=== PATIENT | female | born 2000 | race Caucasian/White ===

== ENCOUNTER 2024-10-01 13:56 | Outpatient (OUT) | payer BC, SELFPAY ==
[2024-10-01 14:51] LABS: Basophils Percent Auto 0.4 % (0.2-2.0); Eosinophils Absolute Auto 0.1 10^3/uL (0.0-0.7); Eosinophils Percent Auto 0.6 % (0.9-7.0); Hematocrit 36.9 % (36.0-48.0); Hemoglobin 13.2 g/dL (12.0-16.0); Immature Granulocytes Abs Auto 0.03 10^3/uL (0.00-0.03); Immature Granulocytes Pct Auto 0.3 % (0.0-0.5); Lymphocytes Absolute Auto 1.9 10^3/uL (1.2-3.8); Lymphocytes Percent Auto 19.2 % (20.5-60.0); Mean Corpuscular HGB Conc 35.8 g/dL (29.9-35.2); Mean Corpuscular Hemoglobin 30.6 pg (26.7-34.0); Mean Corpuscular Volume 85.4 fL (81.0-99.0); Mean Platelet Volume 10.3 fL (9.5-13.5); Monocytes Absolute Auto 0.6 10^3/uL (0.3-0.8); Monocytes Percent Auto 5.8 % (1.7-12.0); Neutrophils Absolute Auto 7.4 10^3/uL (1.4-6.5); Neutrophils Percent Auto 73.7 % (43.0-75.0); Platelet Count 221 10^3/uL (150-450); Red Blood Count 4.32 10^6/uL (4.20-5.40); Red Cell Distribution Width 11.9 % (11.0-15.0)
[2024-10-01 14:52] LABS: Estimated Average Glucose 103 mg/dL; Glycohemoglobin A1C 5.2 % (4.5-6.2)
[2024-10-01 14:59] LABS: Amphetamine Screen Urine NEGATIVE (NEGATIVE); Barbiturates Screen Urine NEGATIVE (NEGATIVE); Benzodiazepines Screen Urine NEGATIVE (NEGATIVE); Buprenorphine Screen Urine NEGATIVE (NEGATIVE); Cannabinoid Screen Urine NEGATIVE (NEGATIVE); Cocaine Screen Urine NEGATIVE (NEGATIVE); Methadone Screen Urine NEGATIVE (NEGATIVE); Methamphetamines Screen Urine NEGATIVE (NEGATIVE); Opiate Screen Urine NEGATIVE (NEGATIVE); Oxycodone Screen Urine NEGATIVE (NEGATIVE); Phencyclidine Screen Urine NEGATIVE (NEGATIVE); Tricyclic Antidepressant Urine NEGATIVE (NEGATIVE)
[2024-10-01 15:40] LABS: BOX Test Reference Lab UNITY; BOX Test Sent Out YES
[2024-10-02 04:07] LABS: Rubella Antibodies, IgG <0.90 index (Immune >0.99)
[2024-10-02 05:12] LABS: HCV Ab Non Reactive (Non Reactive); HIV Ab/p24 Ag Screen Non Reactive (Non Reactive)
[2024-10-02 06:12] LABS: HBsAg Screen Negative (Negative)
[2024-10-02 11:08] LABS: Rapid Plasma Reagin, Quant Non Reactive titer (NonRea<1:1)
== END 2024-10-01 13:57 | disposition home or self-care (01) ==
PROVIDERS: PCP Nurse Practitioner Family; Visit Provider Obstetrics & Gynecology
DX: Z34.01 Encounter for supervision of normal first pregnancy, first trimester (principal); Z36.0 Encounter for antenatal screening for chromosomal anomalies; N92.6 Irregular menstruation, unspecified
CPT/HCPCS: 36415; 80307; 83036; 85025; 86592; 86762; 86803; 86850; 86900; 86901; 87086; 87340; 87389

== ENCOUNTER 2024-11-10 20:06 | Outpatient (REF) | payer BC, SELFPAY ==
--- OUTSIDE RECORDS SUMMARY | 2024-11-10 08:40 | XMS_ITS | Encounter Summary ---
Author Organization [facility] Address [address] [place] [address] Care Team Providers Care Pipe Bender Name Role Phone Rebeka Oconnor NP Primary Care Provider Reason for Visit * Reason Comments Routine Visit Encounter Details Date Type Department Care Team (Latest Contact Info) Description 11/10/2024 8:40 AM EDT [facility]ine [facility] [address] [place] [address] Emilia Somers PA [address] [place], [facility] Screening, , for anatomic survey ([facility]); Second trimester ([facility]); 16 weeks gestation of ([facility]); Vaginal discharge; Well woman exam with routine gynecological exam Social History Tobacco Use Types Packs/Day Years Used Date Smoking Tobacco: Never Assessed Estimated Date of Delivery Comme nts Yes 04/25/2025 Based on last me nstrual period of 07/19/2024 Sex and Gender Information Value Date Recorded Sex Assigned at Not on file Legal Sex Female 9:37 AM EDT Gender Identity Not on file Sexual Orientation Not on file documented as of this encounter Last Filed Vital Signs Vital Sign Reading Time Taken Comments Blood Pressure 110/72 11/10/2024 9:26 AM EDT Pulse - - Temperature - - Respiratory Rate - - Oxygen Saturation - - Inhaled Oxygen Concentration - - Weight 68.7 kg (151 lb 8 oz) 11/10/2024 9:26 AM EDT Height - - Body Mass Index - - documented in this encounter Progress Notes * OSORIO Kellogg - 11/10/2024 8:40 AM EDT Reason for Appointment: Patient ID: Christel Mluler is a 24 y.o. female who presents for Routine Visit Patient presents today for Return OB appointment.and annual MEDICATIONS Current Outpatient Medications Medication Instructions MV-Min-Fe Fum-FA-DHA ( 1 PO) 1 tablet, Daily ALLERGIES No Known Allergies PROBLEMS Active Ambulatory Problems Diagnosis Date Noted No Active Ambulatory Problems Resolved Ambulatory Problems Diagnosis Date Noted No Resolved Ambulatory Problems No Additional Past Medical History HISTORY PAST MEDICAL HISTORY SOCIAL HISTORY No past medical history on file. Social History Tobacco Use Smoking status: Not on file Smokeless tobacco: Not on file Substance Use Topics Alcohol use: Not on file Drug use: Not on file FAMILY HISTORY No family history on file. SURGICAL HISTORY No past surgical history on file. REVIEW OF SYSTEMS Review of Systems: Review of Systems Constitutional: Negative. HENT: Negative. Eyes: Negative. Respiratory: Negative. Cardiovascular: Negative. Gastrointestinal: Negative. Genitourinary: Negative. Musculoskeletal: Negative. Skin: Negative. Neurological: Negative. All other systems reviewed and are negative. Hematological: Negative. Endocrine: Negative. Allergic/Immunologic: Negative. OBJECTIVE Objective: Physical Exam Constitutional: Appearance: Normal appearance. She is normal weight. Genitourinary: Right Adnexa: not tender and no mass present. Left Adnexa: not tender and no mass present. No cervical discharge. Breasts: Breasts are soft. Right: Normal. Left: Normal. HENT: Head: Normocephalic. Nose: Nose normal. Mouth/Throat: Mouth: Mucous membranes are moist. Cardiovascular: Rate and Rhythm: Normal rate. Pulses: Normal pulses. Pulmonary: Effort: Pulmonary effort is normal. Breath sounds: Normal breath sounds. Abdominal: General: Bowel sounds are normal. Palpations: Abdomen is soft. Musculoskeletal: General: Normal range of motion. Cervical back: Normal range of motion. Neurological: General: No focal deficit present. Mental Status: She is alert and oriented to person, place, and time. Skin: General: Skin is warm and dry. Psychiatric: Mood and Affect: Mood normal. Behavior: Behavior normal. Thought Content: Thought content normal. Judgment: Judgment normal. Vitals and nursing note reviewed. Exam conducted with a towel folder present. Vitals: There is no height or weight on file to calculate BMI. BP: 110/72 Patient's last menstrual period was 07/19/2024. ASSESSMENT & PLAN ICD-10-CM 1. Screening, , for anatomic survey ([facility]) Z36.89 US OB 14+ weeks anatomy scan US OB 14+ weeks anatomy scan 2. Second trimester ([facility]) Z34.92 POCT urinalysis dipstick manually resulted 3. 16 weeks gestation of ([facility]) Z3A.16 Alpha fetoprotein, maternal Alpha fetoprotein, maternal 4. Vaginal discharge N89.8 SURESWAB(R) ADVANCED VAGINITIS PLUS, TMA CHLAMYDIA TRACHOMATIS (GENITO/STI) Neisseria gonorrhea DNA probe, direct 5. Well woman exam with routine gynecological exam Z01.419 Pap Smear Return OB/Annual Exam: Patient presents today for an annual exam/routine obstetrics appointment. Patient is currently 16w2d . Patient is doing well and states she has no complaints. Pap/cultures was obtained without difficulty and patient was given [facility] order to have obtained. Orders Placed This Encounter Procedures US OB 14+ weeks anatomy scan CHLAMYDIA TRACHOMATIS (GENITO/STI) Neisseria gonorrhea DNA probe, direct Alpha fetoprotein, maternal POCT urinalysis dipstick manually resulted Follow Up: Patient is to return to our office in 4 weeks for routine OB appointment Documented by OSORIO Kellogg on behalf of: OSORIO Kellogg documented in this encounter Plan of Treatment Upcoming Encounters Date Type Department Care Team (Late st Contact Info) Description 12/08/2024 8:00 AM EDT Ancillary Procedure [facility] [address] [place] [address] 12/08/2024 9:00 AM EDT Routine [facility] [address] [place] [address] Alia Segovia, [place] [address] [place] [address] Scheduled Orders Name Type Priority Associated Diagnoses Orde r Schedule SURESWAB(R) ADVANCED VAGINITIS PLUS, TMA Pathology and Cytology Routine Vaginal discharge Ordered: 11/10/2024 CHLAMYDIA TRACHOMATIS (GENITO/STI) Lab Routine Vaginal discharge Ordered: 11/10/2024 Neisseria gonorrhea DNA probe, direct Lab Routine Vaginal discharge Ordered: 11/10/2024 Pap Smear Pathology and Cytology Routine Well woman exam with routine gynecological exam Ordered: 11/10/2024 US OB 14+ weeks anatomy scan Imaging Routine Screening, , for anatomic survey ([facility]) Expected: 11/10/2024, Expires: 02/10/2025 Alpha fetoprotein, maternal Lab Routine 16 weeks gestation of ([facility]) Expected: 11/10/2024 (Approximate), Expires: 01/11/2025 documented as of this encounter Goals Goal Patient Goal Type Associated Problems Recent Progress Patient-Stated? Author Reminders Care Plan OB Reminders No Open Scheduling, Background documented as of this encounter Procedures Procedure Name Priority Date/Time Associated Diagnosis Comments POCT URINALYSIS DIPSTICK Routine 11/10/2024 9:31 AM EDT Second trimester ([facility]) documented in this encounter Results * (ABNORMAL) POCT urinalysis dipstick manually resulted (11/10/2024 9:31 AM EDT) Color, UA Yellow Clarity, UA Clear Glucose, UA Negative Negative - 2000(110) ++++ mg/dL Bilirubin, UA Negative Negative - 4(70) +++ mg/dL Ketones, UA Negative Negative - 160(16) ++++ mg/dL Spec Grav, UA 1.010 1 - 1.03 Blood, UA Positive Negative - 50 Serafin/mcL Comment:Trace pH, UA 7.0 5 - 9 Protein, UA Negative Negative - 2000(20) ++++ mg/dL Urobilinogen, UA 0.2 0.2 - 12 mg/dL Leukocytes, UA Negative Negative - 500+++ Marcelino/mcL Nitrite, UA Negative Negative - Positive Urine 11/10/2024 9:31 AM EDT Emilia AC POINT OF CARE TEST ENTER/EDIT OR DERABLES Final Result documented in this encounter Visit Diagnoses Diagnosis Screening, , for anatomic survey ([facility]) Encounter for anatomic survey Second trimester ([facility]) state, incidental 16 weeks gestation of ([facility]) Vaginal discharge Leukorrhea, not specified as infective Well woman exam with routine gynecological exam Routine gynecological examination documented in this encounter Additional Health Concerns Active Problems Noted Date Diagnosed Date OB Reminders 10/01/2024 documented as of this encounter Care Teams Pipe Bender Relationship Specialty Start Date End Date Rebeka Oconnor NP [address] [place] [address] PCP - General Family Medicine 09/23/24 documented as of this encounter
--- OUTSIDE RECORDS SUMMARY | 2024-11-10 20:09 | XMS_ITS | Clinical Summary ---
Author Organization [facility] Address [address] [place] [address] Care Team Providers Care As400 Administrator Name Role Phone Rebeka Oconnor NP Primary Care Provider Allergies No known active allergies Medications MV-Min-Fe Fum-FA-DHA ( 1 PO) Take 1 tablet by mouth Daily Active Encounters Date Type Department Care Team Description 11/10/2024 8:40 AM EDT Routine [facility] [address] [facility] [place] [place] [address] Emilia Somers PA Screening, , for anatomic survey ([facility]); Second trimester ([facility]); 16 weeks gestation of ([facility]); Vaginal discharge; Well woman exam with routine gynecological exam 11/10/2024 Bamboo flowsheet [facility]ICK [address] [facility] [place] [address] Emilia Somers PA 10/13/2024 3:50 PM EDT Routine [facility] OBGYN [address] [place] [address] Albert Mcclendon DO First trimester ([facility]); 12 weeks gestation of ([facility]) 10/13/2024 Bamboo flowsheet [facility] KEEGYN [address] [place] [address] Albert Mcclendon DO 10/11/2024 [place] [address] Albert Mcclendon, DO 10/08/2024 Travel 10/01/2024 Clinisync Result Encounter NOMS External Department Unsolicited Albert Mcclendon, DO 09/30/2024 [place] [address] Roma Petit LPN 09/23/2024 1:30 PM ED[place] [address] GA: [id number] 09/23/2024 1:00 PM EDT [place] [id number] Missed menses 09/23/2024 [place] [id number] Albert Mcclendon, DO 09/22/2024 Travel 09/20/2024 Travel from Last 3 Months Social History Tobacco Use Types Packs/Day Years Used Date Smoking Tobacco: Never Assessed Estimated Date of Delivery Comme nts Yes 04/25/2025 Based on last me nstrual period of 07/19/2024 Sex and Gender Information Value Date Recorded Sex Assigned at Not on file Legal Sex Female 9:37 AM EDT Gender Identity Not on file Sexual Orientation Not on file Last Filed Vital Signs Vital Sign Reading Time Taken Comments Blood Pressure 110/72 11/10/2024 9:26 AM EDT Pulse - - Temperature - - Respiratory Rate - - Oxygen Saturation - - Inhaled Oxygen Concentration - - Weight 68.7 kg (151 lb 8 oz) 11/10/2024 9:26 AM EDT Height - - Body Mass Index - - Plan of Treatment Upcoming Encounters Date Type Department Care Team (Late st Contact Info) Description 12/08/2024 8:00 AM [place] [address] 12/08/2024 9:00 AM EDT Routine [facility] [address] [place] [address] Alia Segovia, ENDOSCOPY TECHNICIAN [address] [facility] [place] [address] Goals Goal Patient Goal Type Associated Problems Recent Progress Patient-Stated? Author Reminders Care Plan OB Reminders No Open Scheduling, Background Procedures Procedure Name Priority Date/Time Associated Diagnosis Comments POCT URINALYSIS DIPSTICK Routine 11/10/2024 9:31 AM EDT Second trimester ([facility]) CULTURE, URINE, ROUTINE Routine 10/07/2024 12:58 PM EDT Missed menses HBSAG SCREEN Routine 10/01/2024 2:28 PM EDT RAPID PLASMA REAGIN, QUANT Routine 10/01/2024 2:28 PM EDT HIV AB/P24 AG WITH REFLEX Routine 10/01/2024 2:28 PM EDT HCV ANTIBODY RFX TO QUANT PCR Routine 10/01/2024 2:28 PM EDT ALL RUBELLA IGG AB Routine 10/01/2024 2: 28 PM EDT ALL TYPE AND SCREEN Routine 10/01/2024 2 :28 PM EDT BOX TEST Routine 10/01/2024 2:28 PM EDT ALL CBC WITH AUTO DIFF Routine 10/01/2024 2:28 PM EDT MLR HEMOGLOBIN A1C Routine 10/01/2024 2: 28 PM EDT [facility] DRUG SCREEN RAPID (URINE) Routine 10/01/2024 2:12 PM EDT POCT URINALYSIS DIPSTICK Routine 09/23/2024 2:09 PM EDT Missed menses POCT , URINE Routine 09/23/2024 2:08 PM EDT Missed menses US OB TRANSVAGINAL Routine 09/23/2024 1: 30 PM EDT Missed menses from Last 3 Months Results * (ABNORMAL) POCT urinalysis dipstick manually resulted (11/10/2024 9:31 AM EDT) Only the most recent of2 resultswithin the time period is included. Color, UA Yellow Clarity, UA Clear Glucose, [...] CARE TEST ENTER/EDIT OR DERABLES Final Result * Urine culture (10/07/2024 12:58 PM EDT) Urine Urine specimen obtained by clean catch procedure / Unknown Albert Mcclendon DO LAB MICROBIOLOGY - GENERAL ORDER RIZWAN Final Result EXTERNAL LAB * BOX TEST (10/01/2024 2:28 PM EDT) BOX TEST SENT OUT YES [facility] BOX1 [facility] BOX2 10/01/24 [facility] 10/01/2024 2:28 PM EDT 10/01/2024 2:37 PM EDT Narrative [facility] - 10/01/2024 3:40 PM EDT UNITY BOX Albert Danelle DO LAB BLOOD ORDERABLES Final Resul t Performing Organization Address City/[facility]/ZIP Co de Phone Number [facility] * HBSAG SCREEN (10/01/2024 2:28 PM EDT) Pathologist [facility] HBSAG SCREEN Negative Negative [facility] Comment: Performed at: [address] [id number] Medical Legal Investigator: Iban Dc PhD, Phone: [phone] 10/01/2024 2:28 PM EDT 10/01/2024 2:35 PM EDT Narrative [facility] - 10/02/2024 11:08 AM EDT Albert Danelle DO LAB BLOOD ORDERABLES Final Resul t Performing Organization Address [facility] Co de Phone Number [facility] * RAPID PLASMA REAGIN, QUANT (10/01/2024 2:28 PM EDT) [facility] RAPID PLASMA REAGIN, QUANT Non Reactive NonRea<1: 1 titer [facility] Comment: Please Note: This test does not meet current guidelines for screening and diagnosis of syphilis. This test is intended for following treatment response in patients being treated for syphilis infection. To screen for syphilis infection, a reflex cascade that includes both RPR and a treponema-specific assay should be utilized, such as Treponema pallidum (Syphilis) Screening [place] (960415) or Rapid Plasma Reagin (RPR) Test With Reflex to Quantitative RPR and Confirmatory Treponema pallidum Antibodies ([id number]). Performed at: [address] [id number] Medical Legal Investigator: Iban Dc PhD, Phone: [phone] 10/01/2024 2:28 PM EDT 10/01/2024 2:35 PM EDT Narrative [facility] - 10/02/2024 11:08 AM EDT us Albert Danelle DO LAB BLOOD ORDERABLES Final Resul t Performing Organization Address City/[facility] Co de Phone Number [facility] * HIV AB/P24 AG WITH REFLEX (10/01/2024 2:28 PM EDT) Pathologist [facility] HIV AB/P24 AG SCREEN Non Reactive Non Reactive [facility] Comment: HIV-1/HIV-2 antibodies and HIV-1 p24 antigen were NOT detected. There is no laboratory evidence of HIV infection. HIV Negative Performed at: [address] [id number] Medical Legal Investigator: Iban Dc PhD, Phone: [phone] 10/01/2024 2:28 PM EDT 10/01/2024 2:35 PM EDT [facility] - 10/02/2024 5:12 AM EDT us Albert Danelle DO LAB BLOOD ORDERABLES Final Resul t Performing Organization Address [facility] Co de Phone Number [facility] * HCV ANTIBODY RFX TO QUANT PCR (10/01/2024 2:28 PM EDT) Pathologist [facility] HCV AB Non Reactive Non Reactive TB INTERPRETATION: Comment . [facility] Comment: Not infected with HCV unless early or acute infection is suspected (which may be delayed in an immunocompromised individual), or other evidence exists to indicate HCV infection. Performed at: [address] [id number] Medical Legal Investigator: Iban Dc PhD, Phone: [phone] 10/01/2024 2:28 PM EDT 10/01/2024 2:35 PM EDT Narrative [facility] - 10/02/2024 5:12 AM EDT us Albert Danelle DO LAB BLOOD ORDERABLES Final Resul t Performing Organization Address [facility] Co de Phone Number [facility] * MLR HEMOGLOBIN A1C (10/01/2024 2:28 PM EDT) GLYCOHEMOGLOBIN A1C 5.2 4.5 - 6.2 % [facility] Comment: ADA RECOMMENDED LIMIT 4.0 - 6.0 ADA THERAPEUTIC TARGET < 7.0 ACTION SUGGESTED > 7.0 ESTIMATED AVERAGE GLUCOSE 103 mg/dL TB 10/01/2024 2:28 PM EDT 10/01/2024 2:35 PM EDT Narrative [facility] - 10/01/2024 2:54 PM EDT Albert Danelle DO [facility] Final Result [facility] * ALL TYPE AND SCREEN (10/01/2024 2:28 PM EDT) Pathologist [facility] BLOOD TYPE O Negative [facility] ANTIBODY SCREEN NEGATIVE TB 10/01/2024 2:28 PM EDT 10/01/2024 2:35 PM EDT Narrative [facility] - 10/01/2024 4:11 PM EDT [facility] , Andre Phillipezio DO CL[facility] Final Result [facility] * (ABNORMAL) ALL RUBELLA IGG AB (10/01/2024 2:28 PM EDT) Pathologist [facility] RUBELLA ANTIBODIES, IGG <0.90(A) Immune >0.99 index TB Comment: Non-immune <0.90 Equivocal 0.90 - 0.99 Immune >0.99 Performed at: [address] [id number] Medical Legal Investigator: Iban Dc PhD, Phone: [phone] 10/01/2024 2:28 PM EDT 10/01/2024 2:35 PM EDT Narrative [facility] - 10/02/2024 5:12 AM EDT us Albert Danelle DO [facility] Final Result [facility] * (ABNORMAL) ALL CBC WITH AUTO DIFF (10/01/2024 2:28 PM EDT) [facility] TB WBC 10.0 4.0 - 11.0 10 3/uL TBH TBH RBC 4.32 4.20 - 5.40 10 6/uL [facility] TBH HGB 13.2 12.0 - 16.0 g/dL TBH TBH HCT 36.9 36.0 - 48.0 % [facility] TBH MCV 85.4 81.0 - 99.0 fL TBH TBH MCH 30.6 26.7 - 34.0 pg TBH TBH MCHC 35.8(H) 29.9 - 35.2 g/dL TBH TBH RDW 11.9 11.0 - 15.0 % [facility]H TBH PLT 221 150 - 450 10 3/uL TBH TBH MPV 10.3 9.5 - 13.5 fL [facility]H NEUTROPHILS PERCENT AUTO 73.7 43.0 - 75.0 % [facility]H LYMPHOCYTES PERCENT AUTO 19.2(L) 20.5 - 60.0 % [facility] MONOCYTES PERCENT AUTO 5.8 1.7 - 12.0 % [facility]H TBH EO % 0.6(L) 0.9 - 7.0 % TBH BASOPHILS PERCENT AUTO 0.4 0.2 - 2.0 % [facility] IMMATURE GRANULOCYTES PCT AUTO 0.3 0.0 - 0.5 % [facility]H NEUTROPHILS ABSOLUTE AUTO 7.4(H) 1.4 - 6.5 10 3/uL TBH LYMPHOCYTES ABSOLUTE AUTO 1.9 1.2 - 3.8 10 3/uL TBH MONOCYTES ABSOLUTE AUTO 0.6 0.3 - 0.8 10 3/uL TBH TBH EO # 0.1 0.0 - 0.7 10 3/uL TBH BASOPHILS ABSOLUTE AUTO 0.0 0.0 - 0.1 10 3/uL [facility]H IMMATURE GRANULOCYTES ABS AUTO 0.03 0.00 - 0.03 10 3/uL [facility] 10/01/2024 2:28 PM EDT 10/01/2024 2:35 PM EDT Narrative [facility] - 10/01/2024 3:03 PM EDT Albert Danelle DO CLINISYNC Final Result Performing Organization Address City/[facility]/ZIP Co de Phone Number [facility] * TBH DRUG SCREEN RAPID (URINE) (10/01/2024 2:12 PM EDT) CANNABINOID SCREEN URINE NEGATIVE NEGATIVE TBH PHENCYCLIDINE SCREEN URINE NEGATIVE NEGATIVE TBH COCAINE SCREEN URINE NEGATIVE NEGATIVE TBH METHAMPHETAMINES SCREEN URINE NEGATIVE NEGATIVE TBH OPIATE SCREEN URINE NEGATIVE NEGATIVE TBH AMPHETAMINE SCREEN URINE NEGATIVE NEGATIVE TBH BENZODIAZEPINES SCREEN URINE NEGATIVE NEGATIVE TBH TRICYCLIC ANTIDEPRESSANT URINE NEGATIVE NEGATIVE TBH METHADONE SCREEN URINE NEGATIVE NEGATIVE TBH BARBITURATES SCREEN URINE NEGATIVE NEGATIVE TBH OXYCODONE SCREEN URINE NEGATIVE NEGATIVE TBH BUPRENORPHINE SCREEN URINE NEGATIVE NEGATIVE TB[facility] Comment: DRUG CLASS TEST SYSTEM CUT-OFF CONCENTRATIONS ARE FOLLOWS: AMP (Amphetamine): 500 ng/mL BAR (Barbiturates): 200 ng/mL BZO (Benzodiazepines): 150 ng/mL BUP (Buprenorphine): 10 ng/mL KHURRAM (Cocaine): 150 ng/mL mAMP (Methamphetamine): 500 ng/mL MTD (Methadone): 200 ng/mL OPI (Opiates): 100 ng/mL OXY (Oxycodone): 100 ng/mL PCP (Phencyclidine): 25 ng/mL THC (Cannabinoids): 50 ng/mL TCA (Trycyclic Antidepressants): 300 ng/mL 10/01/2024 2:12 PM EDT 10/01/2024 2:36 PM EDT Narrative [facility] - 10/01/2024 2:59 PM EDT Albert Danelle DO CLINISYNC Final Result [facility] * (ABNORMAL) POCT , urine manually resulted (09/23/2024 2:08 PM EDT) Preg Test, Ur Positive Negative Urine 09/23/2024 2:08 PM EDT Albert Danelle DO POINT OF CARE TEST ENTER/EDIT OR DERABLES Final Result * US OB transvaginal (09/23/2024 1:30 PM EDT) Anatomical Region Laterality Modality Body Ultrasound 09/24/2024 10:2 5 AM EDT Narrative 09/24/2024 10:25 AM EDT EXAM: US OB TRANSVAGINAL HISTORY: Dating. COMPARISON: None available. TECHNIQUE: Two-dimensional transvaginal grayscale ultrasound imaging of the pelvis was performed. Color Doppler evaluation of the ovaries was also performed. FINDINGS: The uterus demonstrates a normal homogeneous echotexture. The cervix measures 3.9 cm in length and the cervical os is closed. The right ovary measures 3.3 x 1.6 x 2.6 cm and demonstrates a normal echotexture. There is normal color Doppler flow. There is a presumed corpus luteal cyst visualized. The left ovary measures 3.1 x 1.5 x 1.6 cm and demonstrates a normal echotexture. There is normal color Doppler flow. No fluid is present within the cul-de-sac. There is a single, live intrauterine gestation identified with a heart rate of 170 beats per minute and a crown-rump length measurement of 2.9 cm, correlating to a gestational age of 9 weeks 5 days (+/- 6 days). There is no subchorionic hemorrhage visualized. A yolk sac is visualized. The performing technologist noted a prominent nuchal fold, measuring 0.2 cm. IMPRESSION: 1. Single, live intrauterine gestation 9 weeks, 3 days by LMP. Today's ultrasound measurements correlate with a gestational age of 9 weeks 5 days (+/- 6 days). OLESYA by today's ultrasound is 04/23/2025. 2. Performing technologist noted a prominent nuchal fold, measuring 0.2 cm. However, the nuchal fold is best assessed between 11-13 weeks' gestation. A follow-up ultrasound is recommended between 11-13 weeks gestation for further evaluation. 3. Normal color Doppler evaluation of the bilateral ovaries. Interpreted by: Electronically signed by JUVENAL MUNGUIA II, MD, PHD at 24-Sep-2024 10:23:52 AM [facility] Procedure Note Juvenal Munguia MD - 09/24/2024 EXAM: US OB TRANSVAGINAL HISTORY: Dating. COMPARISON: None available. TECHNIQUE: Two-dimensional transvaginal grayscale ultrasound imaging ofthe pelvis was performed. Color Doppler evaluation of the ovaries was alsoperformed. FINDINGS: The uterus demonstrates a normal homogeneous echotexture. The cervixmeasures 3.9 cm in length and the cervical os is closed. The right ovary measures 3.3 x 1.6 x 2.6 cm and demonstrates a normalechotexture. There is normal color Doppler flow. There is a presumedcorpus luteal cyst visualized. The left ovary measures 3.1 x 1.5 x 1.6 cm and demonstrates a normalechotexture. There is normal color Doppler flow. No fluid is present within the cul-de-sac. There is a single, live intrauterine gestation identified with a fetalheart rate of 170 beats per minute and a crown-rump length measurement of2.9 cm, correlating to a gestational age of 9 weeks 5 days (+/- 6 days).There is no subchorionic hemorrhage visualized. A yolk sac isvisualized. The performing technologist noted a prominent nuchal fold, measuring 0.2cm. IMPRESSION: 1. Single, live intrauterine gestation 9 weeks, 3 days by LMP. Today'sultrasound measurements correlate with a gestational age of 9 weeks 5 days(+/- 6 days). OLESYA by today's ultrasound is 04/23/2025. 2. Performing technologist noted a prominent nuchal fold, measuring 0.2cm. However, the nuchal fold is best assessed between 11-13 weeks'gestation. A follow-up ultrasound is recommended between 11-13 weeksgestation for further evaluation. 3. Normal color Doppler evaluation of the bilateral ovaries. Interpreted by: Electronically signed by JUVENAL MUNGUIA II, MD, PHD [id number] 10:23:52 AM [facility] us Albert Mcclendon DO [facility] OB US PROCEDURES Final Resul t from Last 3 Months Additional Health Concerns Active Problems Noted Date Diagnosed Date OB Reminders 10/01/2024 Insurance [facility] Care Teams As400 Administrator Relationship Specialty Start Date End Date Rebeka Oconnor NP [facility] [facility] [address] [address] [place] [address] PCP - General Family Medicine 09/23/24
--- OUTSIDE RECORDS SUMMARY | 2024-11-10 20:09 | XMS_ITS | Encounter Summary ---
Author Organization [facility] Address [address] [place] [address] Care Team Providers Care Deckhand Name Role Phone Rebeka Oconnor SERVICE TRANSFORMER REPAIR SUPERVISOR Primary Care Provider Encounter Details Date Type Department Care Team (Late st Contact Info) Description 10/11/2024 Abstract [facility] [address] [place] [address] Albert Mcclendon DO [address] [facility] [address] [place], [facility]11 Social History Tobacco Use Types Packs/Day Years Used Date Smoking Tobacco: Never Assessed Estimated Date of Delivery Comme nts Yes 04/25/2025 Based on last me nstrual period of 07/19/2024 Sex and Gender Information Value Date Recorded Sex Assigned at Not on file Legal Sex Female 9:37 AM EDT Gender Identity Not on file Sexual Orientation Not on file documented as of this encounter Plan of Treatment Upcoming Encounters Date Type Department Care Team (Late st Contact Info) Description 12/08/2024 8:00 AM EDT Ancillary Procedure [facility] VICK [address] [place] [address] 12/08/2024 9:00 AM EDT Routine [facility] VICK [address] [place] [address] Alia Segovia, OTTONIEL [address] [place] [address] documented as of this encounter Goals Goal Patient Goal Type Associated Problems Recent Progress Patient-Stated? Author Reminders Care Plan OB Reminders No Open Scheduling, Background documented as of this encounter Visit Diagnoses Not on filedocumented in this encounter Additional Health Concerns Active Problems Noted Date Diagnosed Date OB Reminders 10/01/2024 documented as of this encounter Care Teams Deckhand Relationship Specialty Start Date End Date Rebeka Oconnor NP [address] [place] [address] PCP - General Family Medicine 09/23/24 documented as of this encounter
--- OUTSIDE RECORDS SUMMARY | 2024-11-10 20:09 | XMS_ITS | Encounter Summary ---
Author Organization [facility] Address [address] [place] [address] Care Team Providers Care Insurance Assistant Name Role Phone Rebeka Oconnor NP Primary Care Provider Encounter Details Date Type Department Care Team (Late Contact Info) Description 11/10/2024 Bamboo flowsheet [facility] [address] [place] [address] Emilia Somers PA [address] [facility] [address] [place], [place] [address] Social History Tobacco Use Types Packs/Day Years [...] Description 12/08/2024 8:00 AM EDT Ancillary Procedure [facility] [address] [facility] [place] [address] 12/08/2024 9:00 AM EDT Routine [facility] [address] [place] [address] Alia Segovia, OTTONIEL [address] [facility] [place] [address] documented as of this encounter Goals Goal Patient Goal Type Associated Problems Recent Progress Patient-Stated? Author Reminders Care Plan OB Reminders No Open Scheduling, Background documented as of this encounter Visit Diagnoses Not on filedocumented in this encounter Additional Health Concerns Active Problems Noted Date Diagnosed Date OB Reminders 10/01/2024 documented as of this encounter Care Teams Insurance Assistant Relationship Specialty Start Date End Date Rebeka Oconnor NP [address] [place] [address] PCP - General Family Medicine 09/23/24 documented as of this encounter
--- OUTSIDE RECORDS SUMMARY | 2024-11-10 20:09 | XMS_ITS | Encounter Summary ---
Author Organization [facility] Address [address] [place] [address] Care Team Providers Care Wedding Cake Designer Name Role Phone Rebeka Oconnor BRANNER MACHINE TENDER Primary Care Provider Encounter Details Date Type Department Care Team (Late st Contact Info) Description 09/23/2024 Abstract [facility] [address] [facility] [place] [address] Albert Mcclendon DO [address] [facility] [address] [place], [facility]11 Social History Tobacco Use Types Packs/Day Years [...] Ancillary Procedure [facility] [address] [place] [address] 12/08/2024 9:00 AM EDT Routine [facility] [address] [place] [address] Alia Segovia, OTTONIEL [address] [place] [address] documented as of this encounter Visit Diagnoses Not on filedocumented in this encounter Care Teams Wedding Cake Designer Relationship Specialty Start Date End Date Rebeka Oconnor NP [address] [place] [address] PCP - General Family Medicine 09/23/24 documented as of this encounter
--- OUTSIDE RECORDS SUMMARY | 2024-11-10 20:09 | XMS_ITS ---
Author Organization [facility] Source Produ ction (ClinicalSummary Clone) Address Unknown Care Team Providers Care Clinical Research Spec Name Role Phone Unavailable Primary Care Physician Unavailab le Results * [UNITY] ANEUPLOIDY NIPT Performed by: [employer] Component Value Range Date Fraction 6.6% 10/08/2024 03 :21 am UT Rh(D) NIPT RhD DETECTED 10/08/2024 03:2 1 am UT Sex Chromosome Aneuploidy NOT DETECTED 03:21 am UT Monosomy X LOW RISK <1 in 10,000 2024 03:21 am UTC Trisomy 13 LOW RISK <1 in 10,000 2024 03:21 am UTC Trisomy 18 LOW RISK <1 in 10,000 2024 03:21 am UTC Trisomy 21 LOW RISK <1 in 10,000 2024 03:21 am UT Sex NOT ORDERED 10/08/2024 03:2 1 am UTC Gestation LOZOYA 10/09/19 03:[address] [facility] For detailed report, see PDF See PDF 10/08/2024 03:21 am UTC 10/08/2024 03:[address] [facility] Social History Observation Value Start Date End Date
--- OUTSIDE RECORDS SUMMARY | 2024-11-10 20:09 | XMS_ITS | Encounter Summary ---
Author Organization [facility] Address [address] [place] [address] Care Team Providers Care Transplant Nurse Name Role Phone Rebeka Oconnor NP Primary Care Provider Encounter Details Date Type Department Care Team (Late st Contact Info) Description 09/30/2024 Results Follow-Up [facility] [place] [facility] [address] [place] [address] Roma Petit LPN [address] [place] [id number] Social History Tobacco Use Types Packs/Day Years Used Date Smoking Tobacco: Never Assessed Estimated Date of Delivery Comme nts Yes 04/25/2025 Based on last me nstrual period of 07/19/2024 Sex and Gender Information Value Date Recorded Sex Assigned at Not on file Legal Sex Female 9:37 AM EDT Gender Identity Not on file Sexual Orientation Not on file documented as of this encounter Miscellaneous Notes * Result Encounter Note - Roma Petit LPN - 09/30/2024 4:47 PM EDT Pt notified and is willing to do unity. * Result Encounter Note - Roma Petit LPN - 09/30/2024 4:40 PM EDT Attempted to call pt again but she did not answer. Voicemail was not setup so I was unable to leavevoicemail. * Result Encounter Note - Roma Petit LPN - 09/30/2024 2:22 PM EDT Attempted to call but she did not answer. Voicemail was not set up so I could not leave voicemail. documented in this encounter Plan of Treatment Upcoming Encounters Date Type Department Care Team (Late st Contact Info) Description 12/08/2024 8:00 AM EDT Ancillary Procedure [facility] [address] [facility] [place] [phone] 12/08/2024 9:00 AM EDT Routine [facility] [address] [place] [address] Alia Segovia NP [address] [facility] [place] [phone] documented as of this encounter Visit Diagnoses Not on filedocumented in this encounter Care Teams Transplant Nurse Relationship Specialty Start Date End Date Rebeka Oconnor NP [facility] [facility] [place] [address] PCP - General Family Medicine 09/23/24 documented as of this encounter
--- OUTSIDE RECORDS SUMMARY | 2024-11-10 20:09 | XMS_ITS ---
Author Organization [facility] Source Produ ction (ClinicalSummary Clone) Address Unknown Care Team Providers Care Consulting Property Manager Name Role Phone Unavailable Primary Care Physician Unavailab le Results * [UNITY] CARRIER SCREEN Performed by: [email or web address] Component Value Range Date Sickle Cell Disease/Beta-Thalassemia/Hemo globinopathies carrier screen NEGATIVE 10/09/2024 07:53 am [place] Alpha-Thalassemia carrier screen NEGATIVE 10/09/2024 07:53 am [place] Cystic Fibrosis carrier screen NEGATIVE 10/09/2024 07:53 am [place] Spinal Muscular Atrophy carrier screen NEGATIVE 2 SMN1 copies, SNP not present 10/09/2024 07:53 am [place] For detailed report, see PDF See PDF 10/09/2024 07:53 am [place] 10/09/2024 07:5 3 am [facility] Social History Observation Value Start Date End Date
[2024-11-17 11:08] LABS: Age Gdln ACOG Testing Note (.); IGP, rfx Aptima HPV ASCU Note (.)
== END 2024-11-10 20:07 | disposition home or self-care (01) ==
LOC: LAB 20:06
PROVIDERS: PCP Nurse Practitioner Family; Visit Provider Physician Assistant
DX: Z01.419 Encounter for gynecological examination (general) (routine) without abnormal findings (principal)
CPT/HCPCS: 88175

== ENCOUNTER 2025-02-03 14:59 | Outpatient (OUT) | payer BC, SELFPAY ==
--- OUTSIDE RECORDS SUMMARY | 2025-02-02 08:30 | XMS_ITS | Encounter Summary ---
Author Organization [facility] Address [address] [facility] [address] Care Team Providers Care Wine Bottle Inspector Name Role Phone Rebeka Oconnor NP Primary Care Provider Reason for Visit * ReasonCommentsRoutine Visit Encounter Details DateTypeDepartmentCare Team (Latest Contact Info)Zwmmyblcgvb75/22/2025 8:30 AM EDTRoutine [facility] [address] [place] [address] Emilia Somers PA [address] [place], [facility]11 Size of fetus inconsistent with dates in second trimester ([facility]) (Primary Dx); Diabetes mellitus screening; Third trimester ([facility]); 28 weeks gestation of ([facility]) Social History Tobacco UseTypesPacks/DayYears UsedDateSmoking Tobacco: Never Assessed Estimated Date of HgwhumdkDxlvicesNxu60/12/2026Based on last menstrual period of 07/19/2024Sex and Gender InformationValueDate RecordedSex Assigned at BirthNot on fileLegal WosLwiebn19/11/2023 9:37 AM EDTGender IdentityNot on fileSexual OrientationNot on filedocumented as of this encounter Last Filed Vital Signs Vital SignReadingTime TakenCommentsBlood Hhscojns547/7202/02/2025 8:42 AM EDT Pulse--Temperature--Respiratory Rate--Oxygen Saturation--Inhaled Oxygen Concentration--Pdhhav03.4 kg (175 lb)02/02/2025 8:42 AM EDTHeight--Body Mass Index--documented in this encounter Progress Notes * OSORIO Kellogg - 02/02/2025 8:30 AM EDT Reason for Appointment: Patient ID: Christel Muller is a 24 y.o. female who presents for Routine Visit Patient presents today for Return OB appointment. MEDICATIONS Current Outpatient Medications Medication Instructions MV-Min-Fe [...] No family history on file. SURGICAL HISTORY History reviewed. No pertinent surgical history. REVIEW OF SYSTEMS Review of Systems: Review of Systems OBJECTIVE Objective: OBGyn Exam Vitals: There is no height or weight on file to calculate BMI. BP: Patient's last menstrual period was 07/19/2024. Assessment/Plan ICD-10-CM 1. Diabetes mellitus screening Z13.1 CBC Glucose tolerance, 1 hour CBC Glucose tolerance, 1 hour 2. Third trimester ([facility]) Z34.93 POCT urinalysis dipstick manually resulted 3. 28 weeks gestation of ([facility]) Z3A.28 Return OB: Patient presents today for a routine obstetrics appointment. Patient is currently 28w2d . Patient states she is doing well but has complaints of being tired due to current . Patient has verbalizes frequent movement. labor precautions was discussed/given and patient was instructed to perform kick counts three times a day. Patient was given 1- hr glucose order/CBC to obtain this week at [facility]. PVU. Patient did get a call to schedule the Rhogam injection at [facility] yesterday. Pt states she will be returning the call back today. Orders Placed This Encounter Procedures CBC Glucose tolerance, 1 hour POCT urinalysis dipstick manually resulted Follow Up: Patient is to return to office in 2 week for routine OB appointment. Documented by Danay Cannon MA on behalf of: OSORIO Kellogg documented in this encounter Plan of Treatment DateTypeDepartmentCare Team (Latest Contact Info)Wfepeozvajw92/06/2025 11:00 AM ESTAncillary Procedure [facility] [address] [place] [id number] 02/17/2025 11:40 AM ESTRoutine [facility] [address] [place] [address] Albert Mcclendon DO [address] [place] [address] NameTypePriorityAssociated DiagnosesOrder ScheduleCBCLabRoutine Diabetes mellitus screening Expected: 02/02/2025 (Approximate), Expires: 02/02/2026Glucose tolerance, 1 hour LabRoutine Diabetes mellitus screening Expected: 02/02/2025 (Approximate), Expires: 02/02/2026US OB follow up transabdominal approachImagingRoutine Size of fetus inconsistent with dates in second trimester ([facility]) Expected: 02/02/2025, Expires: 06/05/2025documented as of this encounter Goals GoalPatient Goal TypeAssociated ProblemsRecent ProgressPatient-Stated?Author Reminders Care PlanOB RemindersNoOpen Scheduling, Backgrounddocumented as of this encounter Procedures Procedure NamePriorityDate/TimeAssociated DiagnosisCommentsPOCT URINALYSIS JJDDROSIDjfxmsr02/22/2025 8:50 AM EDT Third trimester ([facility]) PAP TEST, WULSLOCUEluhwdq80/30/2025 12:00 AM EDTdocumented in this encounter Results * (ABNORMAL) POCT urinalysis dipstick manually resulted (02/02/2025 8:50 AM EDT) ComponentValueRef RangeTest MethodAnalysis TimePerformed AtPathologist SignatureColor, UAYellowClarity, UAClearGlucose, UANegativeNegative - 2000(110) ++++ mg/dLBilirubin, UANegativeNegative - 4(70) +++ mg/dLKetones, UA NegativeNegative - 160(16) ++++ mg/dLSpec Grav, UA1.0151 - 1.03Blood, UA PositiveNegative - 50 Serafin/mcLpH, UA6.55 - 9Protein, UANegativeNegative - 2000(20) ++++ mg/dLUrobilinogen, UA1.00.2 - 12 mg/dLLeukocytes, UA3+Negative - 500+++ Marcelino/mcLNitrite, UANegativeNegative - PositiveSpecimen (Source) Anatomical Location / LateralityCollection Method / VolumeCollection Time Received SeujFrstv16/22/2025 8:50 AM EDT Narrative Authorizing ProviderResult TypeResult StatusAmy Yonis PAPOINT OF CARE TEST ENTER/EDIT ORDERABLESFinal Result * PAP TEST, EXTERNAL (11/10/2024 12:00 AM EDT) Narrative Authorizing ProviderResult TypeResult StatusAmy Yonis PALAB CYTOLOGY ORDERABLES Final ResultPerforming OrganizationAddressCity/State/ZIP CodePhone Number EXTERNAL LAB documented in this encounter Visit Diagnoses Diagnosis Size of fetus inconsistent with dates in second trimester ([facility])- Primary Diabetes mellitus screening Screening for diabetes mellitus Third trimester ([facility]) state, incidental 28 weeks gestation of ([facility] documented in this encounter Additional Health Concerns Active ProblemsNoted DateDiagnosed DateOB Xnzfcuseh68/20/2025 documented as of this encounter Care Teams Team MemberRelationshipSpecialtyStart DateEnd Date Rebeka Oconnor NP [address] [place], [place] [id number] PCP - GeneralFamily Medicine09/23/24documented as of this encounter
--- OUTSIDE RECORDS SUMMARY | 2025-02-03 15:06 | XMS_ITS | Encounter Summary ---
Author Organization [facility] Address [address] [place] [address] Care Team Providers Care Resaw Tailer Name Role Phone Rebeka Oconnor NP Primary Care Provider Encounter Details DateTypeDepartmentCare Team (Latest Contact Info)Masgdykejuc14/22/2025Travel Social History Tobacco UseTypesPacks/DayYears UsedDateSmoking Tobacco: Never Assessed Estimated Date of DpofpermXmyubghhZzi54/12/2026Based on last menstrual period of 07/19/2024Sex and Gender InformationValueDate RecordedSex Assigned at BirthNot on fileLegal XrmNuspft71/11/2023 9:37 AM EDTGender IdentityNot on fileSexual OrientationNot on filedocumented as of this encounter Plan of Treatment DateTypeDepartmentCare Team (Latest Contact Info)Ruvwinfvvsz76/06/2025 11:00 AM ESTAncillary Procedure [facility] [address] [place] [address] 02/17/2025 11:40 AM ESTRoutine [facility] [address] [place] [address] Albert Mcclendon DO [address], [facility]11 documented as of this encounter Goals GoalPatient Goal TypeAssociated ProblemsRecent ProgressPatient-Stated?Author Reminders Care PlanOB RemindersNoOpen Scheduling, Backgrounddocumented as of this encounter Visit Diagnoses Not on filedocumented in this encounter Additional Health Concerns Active ProblemsNoted DateDiagnosed DateOB Xxetksnlw57/20/2025 documented as of this encounter Care Teams Team MemberRelationshipSpecialtyStart DateEnd Date Rebeka Oconnor NP [facility] [place] [id number] PCP - GeneralFamily Medicine09/23/24documented as of this encounter
--- OUTSIDE RECORDS SUMMARY | 2025-02-03 15:06 | XMS_ITS | Encounter Summary ---
Author Organization [facility] Address [address] [place] [address] Care Team Providers Care Dairy Farm Worker Name Role Phone Rebeka Oconnor NP Primary Care Provider Encounter Details DateTypeDepartmentCare Team (Latest Contact Info)Necjgsszamd39/22/2025amboo flowsheet [facility] [address] [place] [address] Emilia Somers PA [address] [place], [place] [address] Social History Tobacco UseTypesPacks/DayYears UsedDateSmoking Tobacco: Never Assessed Estimated Date of BmyaktrqSezydzuhPcv01/12/2026Based on last menstrual period of 07/19/2024Sex and Gender InformationValueDate RecordedSex Assigned at BirthNot on fileLegal DgaBlqsba79/11/2023 9:37 AM EDTGender IdentityNot on fileSexual OrientationNot on filedocumented as of this encounter Plan of Treatment DateTypeDepartmentCare Team (Latest Contact Info)Axmyfenbmio36/06/2025 11:00 AM ESTAncillary Procedure [facility] [address] [place] [address] 02/17/2025 11:40 AM ESTRoutine [facility] [address] [place] [address] Albert Mcclendon DO [address] [place] [address] documented as of this encounter Goals GoalPatient Goal TypeAssociated ProblemsRecent ProgressPatient-Stated?Author Reminders Care PlanOB RemindersNoOpen Scheduling, Backgrounddocumented as of this encounter Visit Diagnoses Not on filedocumented in this encounter Additional Health Concerns Active ProblemsNoted DateDiagnosed DateOB Opmivxwcg19/20/2025 documented as of this encounter Care Teams Team MemberRelationshipSpecialtyStart DateEnd Date Rebeka Oconnor NP [address] [place] [address] [place] [address] PCP - GeneralFamily Medicine09/23/24documented as of this encounter
--- OUTSIDE RECORDS SUMMARY | 2025-02-03 15:06 | XMS_ITS | Clinical Summary ---
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 Phone Rebeka Oconnor NP Primary Care Provider Allergies No known active allergies Medications MedicationSigDispense QuantityRefillsLast FilledStart DateEnd DateStatus MV-Min-Fe Fum-FA-DHA ( 1 PO) Take 1 tablet by mouth DailyActive Encounters DateTypeDepartmentCare ItwzAwzmnvwutul64/22/2025 8:30 AM [place] [address] Emilia Somers PA Size of fetus inconsistent with dates in second trimester ([facility]) (Primary Dx); Diabetes mellitus screening; Third trimester ([facility]); 28 weeks gestation of ([facility])02/02/2025amboo [place] [address] Emilia Somers PA 02/02/20250648Rvdlsf80/24/2025 9:00 AM EDTAncillary [place] [address] Screening, , for anatomic survey ([facility])01/03/2025 3:50 PM EDT [place] [address] Albert Mcclendon DO Screening, , for anatomic survey ([facility]) (Primary Dx); Second trimester ([facility]); 24 weeks gestation of ([facility])01/03/2025amboo flowsheet [facility] [place] [address] Albert Mcclendon, 01/03/20257716Hmkhzf53/27/2025 9:00 AM EDTRoutine [facility] Christianson [facility] [address] Alia Segovia, OTTONIEL Second trimester ([facility]); 20 weeks gestation of ([facility])12/08/2024 8:00 AM EDTAncillary Procedure [facility] [place] [address] 12/07/20247898Qnnpbo36/30/2025 8:40 AM EDTRoutine [facility] [place] [address] Emilia Somers PA Screening, , for anatomic survey ([facility]); Second trimester ([facility]); 16 weeks gestation of ([facility]); Vaginal discharge; Well woman exam with routine gynecological exam11/10/2024linisync Result Encounter N[facility] External Department Unsolicited Emilia Somers PA 11/10/2024External Result Encounter NOMS External Department Unsolicited Emilia Somers PA 11/10/2024amboo flowsheet [facility] [address] [place] [address] [place] [address] Emilia Somers PA from Last 3 Months Social History Tobacco UseTypesPacks/DayYears UsedDateSmoking Tobacco: Never Assessed Estimated Date of DdduaaryRkryfcwqWec91/12/2026Based on last menstrual period of 07/19/2024Sex and Gender InformationValueDate RecordedSex Assigned at BirthNot on fileLegal WgkMvcznd10/11/2023 9:37 AM EDTGender IdentityNot on fileSexual OrientationNot on file Last Filed Vital Signs Vital SignReadingTime TakenCommentsBlood Molspckg452/7202/02/2025 8:42 AM EDT Pulse--Temperature--Respiratory Rate--Oxygen Saturation--Inhaled Oxygen Concentration--Peiejt06.4 kg (175 lb)02/02/2025 8:42 AM EDTHeight--Body Mass Index-- Plan of Treatment DateTypeDepartmentCare Team (Latest Contact Info)Kuieflmkwcf37/06/2025 11:00 AM ESTAncillary Procedure [facility] [address] [facility] [place] [address] 02/17/2025 11:40 AM ESTRoutine [facility] V[facility] [address] [place] [address] Albert Mcclendon, [address] [facility] [address] [place], [place] [id number] Goals GoalPatient Goal TypeAssociated ProblemsRecent ProgressPatient-Stated?Author Reminders Care PlanOB RemindersNoOpen Scheduling, Background Procedures Procedure NamePriorityDate/TimeAssociated DiagnosisCommentsPOCT URINALYSIS VXRHATKLOfzgeaa35/22/2025 8:50 AM EDT Third trimester ([facility]) US OB LIMITED 1+ QRHAOTYIunpbuo23/24/2025 9:28 AM EDT Screening, , for anatomic survey ([facility]) POCT URINALYSIS ZOFDFLLMTkgyiof42/22/2025 4:41 PM EDT Second trimester ([facility]) POCT URINALYSIS YULROBAQZijhjgd03/27/2025 9:17 AM EDT Second trimester ([facility]) US OB 14+ WEEKS ANATOMY QFINCebozoo96/27/2025 9:06 AM EDT Screening, , for anatomic survey ([facility]) RECURRENT VAGINITIS (HTRX)Nmpswss0411/10/2024 10:47 AM EDT POCT URINALYSIS MANEXFMWBwaxrmf57/30/2025 9:31 AM EDT Second trimester ([facility]) IGP,APTIMA HPV,AGE DMGWCnmnavm84/30/2025 9:10 AM EDT PAP TEST, VKYDUVVMXotlyyw93/30/2025 12:00 AM EDTfrom Last 3 Months Results * (ABNORMAL) POCT urinalysis dipstick manually resulted (02/02/2025 8:50 AM EDT) Only the most recent of4 resultswithin the time period is included. ComponentValueRef RangeTest MethodAnalysis TimePerformed AtPathologist Signature Color, UAYellowClarity, UAClearGlucose, UANegativeNegative - 2000(110) ++++ mg/dLBilirubin, UANegativeNegative - 4(70) +++ mg/dLKetones, UANegativeNegative - 160(16) ++++ mg/dLSpec Grav, UA1.0151 - 1.03Blood, UAPositiveNegative - 50 Serafin/mcLpH, UA6.55 - 9Protein, UANegativeNegative - 2000(20) ++++ mg/dL Urobilinogen, UA1.00.2 - 12 mg/dLLeukocytes, UA3+Negative - 500+++ Marcelino/mcL Nitrite, UANegativeNegative - PositiveSpecimen (Source)Anatomical Location / LateralityCollection Method / VolumeCollection TimeReceived ExydYeize42/22/2025 8:50 AM EDT Narrative Authorizing ProviderResult TypeResult StatusSouthcoast Behavioral Health HospitalOINT OF CARE TEST ENTER/EDIT ORDERABLESFinal Result * US OB limited 1+ fetuses (01/05/2025 9:28 AM EDT)Anatomical RegionLaterality ModalityBodyUltrasoundSpecimen (Source)Anatomical Location / Laterality Collection Method / VolumeCollection TimeReceived Time01/06/2025 12:39 PM EDT Impressions 01/06/2025 12:59 PM EDT Normal outflow tracts, viable intrauterine TRANSCRIBED BY: ? ELECTRONICALLY SIGNED BY: Blas Salomon MD Narrative 01/06/2025 12:59 PM EDT FINDINGS: Single viable interpregnancy, adequate and cardiac activity (158 bpm). Breech presentation, closed cervix. RVOT and LVOT are adequately seen, age appropriate at this time. Gestational age of 24 weeks, 2 days with estimated delivered date of April 25, 2025. Procedure Note Blas Salomon MD - 01/06/2025 FINDINGS: Single viable interpregnancy, adequate and cardiac activity (158bpm). Breech presentation, closed cervix. RVOT and LVOT are adequately seen, age appropriate at this time. Gestational age of 24 weeks, 2 days with estimated delivered date ofApril 25, 2025. IMPRESSION: Normal outflow tracts, viable intrauterine TRANSCRIBED BY: ELECTRONICALLY SIGNED BY: Blas Salomon MD Authorizing ProviderResult TypeResult StatusAlia Segovia NPIMG OB US PROCEDURESFinal Result * US OB 14+ weeks anatomy scan (12/08/2024 9:06 AM EDT)Anatomical Region LateralityModalityBodyUltrasoundSpecimen (Source)Anatomical Location / LateralityCollection Method / VolumeCollection TimeReceived Time12/09/2024 11:53 AM EDT Addenda Addendum by Blas Salomon MD on 12/14/2024 12:59 PM EDT ADDENDUM #1 Anatomic evaluation is incomplete, recommend follow-up imaging to evaluate LVOT and RVOT. TRANSCRIBED BY: ? ELECTRONICALLY SIGNED BY: Blas Salomon MD Impressions 12/09/2024 1:28 PM EDT Single, live intrauterine , current sonographic age of 20 weeks and 1 days, with an estimated date of delivery of April 26, 2025. * ??Estimated Weight (g) by Percentile is based upon an accurate estimated age based onlast menstrual period. ?? TRANSCRIBED BY: ? ELECTRONICALLY SIGNED BY: Blas Salomon MD Narrative 12/09/2024 1:28 PM EDT FINDINGS: A single, live intrauterine is present with normal cardiac rate of 144 ??beats per minute. Normal activity and amniotic fluid volume. Amniotic fluid index is ?? cm. ??Morphologyis grossly normal. ??The ??inferior aspect of the posterior placenta 3.2 cm from the closed internal cervical os, 3.6 x 3.7 cm length, not associated with the cervical os. ??The current sonographic age is 20 ?? weeks and 1 ??days, based on the following measurements: BPD ?4.7cm (20 ??weeks, 1 days) Head Circumference ?17.3cm ( 19weeks, 6 days) Abdominal Circumference ? 15.6cm ( 20weeks, 5 days) Femur Length ? 3.4cm (20 weeks, 3 days) Presentation ?Breech ? Placenta ?Posterior Weight (g) by Percentile ?? 60.5 % * These measurements result in an estimated date of delivery of April 26, 2025. ?The current estimated weight is ??361 ??grams ( ??pound, 13 ??ounces). ?? Procedure Note Blas Salomon MD - 12/09/2024 FINDINGS: A single, live intrauterine is present with normal cardiacrate of 144 beats per minute. Normal activity and amniotic fluidvolume. Amniotic fluid index is cm. Morphology is grossly normal. Theinferior aspect of the posterior placenta 3.2 cm from the closed internalcervical os, 3.6 x 3.7 cm length, not associated with the cervical os.The current sonographic age is 20 weeks and 1 days, based on thefollowing measurements: BPD 4.7cm (20 weeks, 1 days) Head Circumference 17.3cm ( 19weeks, 6 days) Abdominal Circumference 15.6cm ( 20weeks, 5 days) Femur Length 3.4cm (20 weeks, 3 days) Presentation Breech Placenta Posterior Weight (g) by Percentile 60.5 % * These measurements result in an estimated date of delivery of April. The current estimated weight is 361 grams ( pound, 13ounces). IMPRESSION: Single, live intrauterine , current sonographic age of 20 weeksand 1 days, with an estimated date of delivery of April 26, 2025. * Estimated Weight (g) by Percentile is based upon an accurateestimated age based on last menstrual period. TRANSCRIBED BY: ELECTRONICALLY SIGNED BY: Blas Salomon MD Authorizing ProviderResult TypeResult StatusAmy Yonis ALVAREZ OB US PROCEDURES Edited Result - Final * RECURRENT VAGINITIS (HTRX) (11/10/2024 10:47 AM EDT)ComponentValueRef Range Test MethodAnalysis TimePerformed AtPathologist SignatureATOPOBIUM VAGINAE0 19.961 - 24.689 ppm11/12/2024 11:14 AM EDTHealthTrackRx at LabPortATOPOBIUM VAGINAENot Ejasghut09.961 - 24.689 ppm11/12/2024 11:14 AM EDTHealthTrackRx at LabPortBVAB 2,3 (BACTERIAL VAGINOSIS ASSOCIATED BACTERIA 2, 3); MOBILUNCUS SPP 019.961 - 24.689 ppm11/12/2024 11:14 AM EDTHealthTrackRx at LabPortBVAB 2,3 (BACTERIAL VAGINOSIS ASSOCIATED BACTERIA 2, 3); MOBILUNCUS SPPNot Detected 19.961 - 24.689 ppm11/12/2024 11:14 AM EDTHealthTrackRx at LabPortCANDIDA ALBICANS, PARAPSILOSIS, UCOEOTWMWJ532.000 - 30.347 ppm11/12/2024 11:14 AM EDT [facility] at LabPortCANDIDA ALBICANS, PARAPSILOSIS, TROPICALISNot Detected 23.000 - 30.347 ppm11/12/2024 11:14 AM EDTHealthTrackRx at LabPortCANDIDA UTWHHBMI229.000 - 31.618 ppm11/12/2024 11:14 AM EDTHealthTrackRx at LabPort DERECK GLABRATANot Sntlqnrv50.000 - 31.618 ppm11/12/2024 11:14 AM EDT [facility] IMTOUQ427.000 - 30.873 ppm11/12/2024 11:14 AM EDTHealthTrackRx at [facility] HospitalCANDIDA KRUSEINot Dodwgoad78.000 - 30.873 ppm 11/12/2024 11:14 AM EDTHealthTrackRx at [facility] HospitalCHLAMYDIA BRIRTSGIKGY045.000 - 31.586 ppm11/12/2024 11:14 AM EDTHealthTrackRx at [facility] HospitalCHLAMYDIA TRACHOMATIS Not Axhetzjw86.000 - 31.586 ppm11/12/2024 11:14 AM EDTHealthTrackRx at [facility] GARDNERELLA LAXEWFUUS143.961 - 24.689 ppm11/12/2024 11:14 AM EDTHealthTrackRx at [facility] HospitalGARDNERELLA VAGINALISNot Cziolqam79.961 - 24.689 ppm11/12/2024 11:14 AM EDTHealthTrackRx at [facility] HospitalMEGASPHAERA (TYPES 1, 2)019.961 - 24.689 ppm 11/12/2024 11:14 AM EDTHealthTrackRx at [facility] HospitalMEGASPHAERA (TYPES 1, 2)Not Juaizipq91.961 - 24.689 ppm11/12/2024 11:14 AM EDTHealthTrackRx at [facility] NEISSERIA WXYDJAVPEDS006.000 - 32.587 ppm11/12/2024 11:14 AM EDTHealthTrackRx at [facility] HospitalNEISSERIA GONORRHOEAENot Bcmbkole94.000 - 32.587 ppm11/12/2024 11:14 AM EDTHealthTrackRx at [facility] HospitalTRICHOMONAS JJBMKGNUS172.000 - 31.995 ppm 11/12/2024 11:14 AM EDTHealthTrackRx at [facility] HospitalTRICHOMONAS VAGINALISNot Pvryhpkt07.000 - 31.995 ppm11/12/2024 11:14 AM EDTHealthTrackRx at [facility] MYCOPLASMA RAYYYPPQFM984.961 - 24.689 ppm11/12/2024 11:14 AM EDTHealthTrackRx at [facility] HospitalMYCOPLASMA GENITALIUMNot Fysnhdeo73.961 - 24.689 [facility]11/12/2024 11:14 AM EDTHealthTrackRx at [facility] Community HospitalSpecimen (Source)Anatomical Location / LateralityCollection Method / VolumeCollection TimeReceived TimeTissue 11/10/2024 10:47 AM EDT11/12/2024 1:11 AM EDT Narrative Authorizing ProviderResult TypeResult StatusAmy Protivin [facility] BLOOD ORDERABLES Final ResultPerforming OrganizationAddressCity/State/ZIP CodePhone Number [facility] [address] [address] * IGP,APTIMA HPV,AGE GDLN (11/10/2024 9:10 AM EDT)ComponentValueRef RangeTest MethodAnalysis TimePerformed AtPathologist SignatureAGE GDLN ACOG TESTINGNote. TBHComment: ?? TESTS ? RESULT ??FLAG ??UNITS ?REF RANGE ??LAB ?? Clinician Provided Cytology Information ?? Source.............Vagina ?? Other.............. ?? No. of containers..01 ThinPrep Vial Age Algo ACOG Gisela... ??21-29 ? 01 ?FLAG LEGEND: ?L-Low Normal,H-High Normal,LL-Alert Low,HH-Alert High <-Panic Low,>-Panic High,A-Abnormal,AA-Critical Abnormal Performed at: 01 =G ?[facility] [place] ?? [address] [place] ??[phone] ?? Florence Strickland MD, IGP, RFX APTIMA HPV ASCUNote.TBHComment: ?? TESTS ? RESULT ??FLAG ??UNITS ?REF RANGE ??LAB DIAGNOSIS: ?02 ?? NEGATIVE FOR INTRAEPITHELIAL LESION OR MALIGNANCY. ?? THIS SPECIMEN WAS RESCREENED PART OF OUR CAREER DEVELOPMENT MANAGER PROGRAM. Specimen adequacy: ?02 ?? Satisfactory for evaluation. ??No endocervical component is identified. ?? An endocervical component is not commonly seen in the patient. Performed by: ? 02 ?? Elaine Deleon Quilting Supervisor ([facility]) QC reviewed by: ? 02 ?? Ena Veloz, Quilting Supervisor (ASCP) . ? 02 Note: ? Note ?02 ?? The Pap smear is a screening test designed to aid in the ?? detection of premalignant and malignant conditions of the ?? uterine cervix. ??It is not a diagnostic procedure and ?? should not be used as the sole means of detecting cervical ?? cancer. ??Both false-positive and false-negative reports do ?? occur. Test Methodology: ? Note ?02 ?? This liquid based ThinPrep(R) pap test was screened with ?? the use of an image guided system. . ? 02 ?? The HPV DNA reflex criteria were not met with this specimen ?? result therefore, no HPV testing was performed. ?FLAG LEGEND: ?L-Low Normal,H-High Normal,LL-Alert Low,HH-Alert High <-Panic Low,>-Panic High,A-Abnormal,AA-Critical Abnormal Performed at: 02 WB ?[facility] [place] ?? [address], [place] ??[phone] ?? Florence Strickland MD, Performed at: ??=G - [facility] [place] [address], [place] ??[phone] Concrete Building Assembler: Florence Strickland MD, Phone: ??[phone] Performed at: ??WB - [facility] [place] [address], [place] ??[phone] Concrete Building Assembler: Florence Strickland MD, Phone: ??[phone] Specimen (Source)Anatomical Location / LateralityCollection Method / Volume Collection TimeReceived Time11/10/2024 9:10 AM EDT11/11/2024 5:41 AM EDT Narrative [facility] - 11/17/2024 11:08 AM EDT SPATULA-ALONE VAGINA Authorizing ProviderResult TypeResult StatusAmy Yonis [facility] BLOOD ORDERABLES Final ResultPerforming OrganizationAddressCity/State/ZIP CodePhone Number [facility] * PAP TEST, EXTERNAL (11/10/2024 12:00 AM EDT) Narrative Authorizing ProviderResult TypeResult StatusAmy Protivin [facility] CYTOLOGY ORDERABLES Final ResultPerforming OrganizationAddressCity/State/ZIP CodePhone Number EXTERNAL LAB from Last 3 Months Additional Health Concerns Active ProblemsNoted DateDiagnosed DateOB Cbcuoknfb54/20/2025 Insurance MemberSubscriberPlan / Payer (Effective 2024-Present)Name:Christel Muller Relation to Subscriber:SelfName:Christel Muller Payer ID:Not on file Type:Not on file Address: [facility] [id number] [place] [phone] Care Teams Team MemberRelationshipSpecialtyStart DateEnd Date Rebeka Oconnor NP [facility] [place] [address] [facility]/23/24
[2025-02-03 16:22] LABS: Hematocrit 34.7 % (36.0-48.0); Hemoglobin 11.9 g/dL (12.0-16.0); Immature Granulocytes Abs Auto 0.07 10^3/uL (0.00-0.03); Immature Granulocytes Pct Auto 0.6 % (0.0-0.5); Lymphocytes Absolute Auto 1.5 10^3/uL (1.2-3.8); Mean Corpuscular HGB Conc 34.3 g/dL (29.9-35.2); Mean Corpuscular Hemoglobin 30.4 pg (26.7-34.0); Mean Corpuscular Volume 88.7 fL (81.0-99.0); Platelet Count 190 10^3/uL (150-450); Red Blood Count 3.91 10^6/uL (4.20-5.40); White Blood Count 10.8 10^3/uL (4.0-11.0)
[2025-02-03 16:34] LABS: Glucose 1 Hour 117 mg/dL (<130)
== END 2025-02-03 15:00 | disposition home or self-care (01) ==
LOC: LAB 15:02
PROVIDERS: PCP Nurse Practitioner Family; Visit Provider Physician Assistant
DX: Z13.1 Encounter for screening for diabetes mellitus (principal)
CPT/HCPCS: 36415; 82950; 85025

== ENCOUNTER 2025-02-04 09:00 | Outpatient (RCR) | payer BC, SELFPAY ==
[2025-02-04] MEDS: RHO(D) IMMUNE GLOBULIN 1,500 UNIT SYRINGE 1500 UNIT IM (09:08)
== END 2025-02-14 12:00 | disposition home or self-care (01) ==
LOC: LAB 09:00
PROVIDERS: PCP Nurse Practitioner Family; Visit Provider Obstetrics & Gynecology
DX: O26.893 Other specified pregnancy related conditions, third trimester (principal); Z67.91 Unspecified blood type, Rh negative; Z13.1 Encounter for screening for diabetes mellitus; Z51.81 Encounter for therapeutic drug level monitoring
CPT/HCPCS: 36415; 82950; 85025; 86850; 86900; 86901; J2791

== ENCOUNTER 2025-03-28 20:16 | Outpatient (REF) | payer BC, SELFPAY ==
--- OUTSIDE RECORDS SUMMARY | 2025-03-16 13:30 | XMS_ITS | Encounter Summary ---
Author Organization [facility] Address [address] [facility] [place] [address] Care Team Providers Care Manager Hospital Name Role Phone Rebeka Oconnor NP Primary Care Provider Reason for Visit * ReasonCommentsRoutine Visit Encounter Details DateTypeDepartmentCare Team (Latest Contact Info)Cqzelzxwxox68/03/2025 1:30 PM ESTRoutine [facility] [address] [address] [address] [place] [address] Albert Mcclendon DO [address] [facility] [address] [place], [facility] Third trimester ([facility]); 34 weeks gestation of ([facility]) Social History Tobacco UseTypesPacks/DayYears UsedDateSmoking Tobacco: Never Assessed Estimated Date of VwqplpaiBhdwkowkBye22/12/2026ased on last menstrual period of 07/19/2024Sex and Gender InformationValueDate RecordedSex Assigned at BirthNot on fileLegal UstGouywc77/11/2023 9:37 AM EDTGender IdentityNot on fileSexual OrientationNot on filedocumented as of this encounter Last Filed Vital Signs Vital SignReadingTime TakenCommentsBlood Urjyuzgx474/7003/16/2025 2:10 PM EST Pulse--Temperature--Respiratory Rate--Oxygen Saturation--Inhaled Oxygen Concentration--Abazpg84.6 kg (182 lb)03/16/2025 2:10 PM ESTHeight--Body Mass Index--documented in this encounter Progress Notes * Mary Ellen Silver LPN - 03/16/2025 1:30 PM EST Reason for Appointment: Patient ID: Christel Muller is a 25 y.o. female who presents for Routine Visit [...] Exam Constitutional: Appearance: Normal appearance. She is well-developed. Cardiovascular: Rate and Rhythm: Normal rate and regular rhythm. Pulmonary: Effort: Pulmonary effort is normal. Breath sounds: Normal breath sounds. Abdominal: General: Bowel sounds are normal. There is no distension. Palpations: Abdomen is soft. Tenderness: There is no abdominal tenderness. There is no guarding or rebound. Musculoskeletal: General: No swelling. Normal range of motion. Right lower leg: No edema. Left lower leg: No edema. Neurological: Mental Status: She is alert and oriented to person, place, and time. Skin: General: Skin is warm and dry. Psychiatric: Mood and Affect: Mood normal. Behavior: Behavior normal. Vitals and nursing note reviewed. Exam conducted with a hazardous materials handler present. Vitals: There is no height or weight on file to calculate BMI. BP: Patient's last menstrual period was 07/19/2024. Assessment/Plan ICD-10-CM 1. Third trimester ([facility]) Z34.93 POCT urinalysis dipstick manually resulted 2. 34 weeks gestation of ([facility]) Z3A.34 Assessment/Plan Return OB: Patient presents today for a routine obstetrics appointment. Patient is currently 34w2d . Patient states she is doing well but has complaints of being tired due to current . Patient has verbalizes frequent movement. labor precautions was discussed/given and patient was instructed to perform kick counts three times a day. Pt has uri- pt advised to get sudafed. Orders Placed This Encounter Procedures POCT urinalysis dipstick manually resulted Follow Up: Patient is to return to office in 2 week for routine OB appointment. Documented by Mary Ellen Silver LPN on behalf of: Albert Mcclendon DO documented in this encounter Plan of Treatment DateTypeDepartmentCare Team (Latest Contact Info)Mubkpkuctrz20/22/2025 1:00 PM ESTRoutine [facility] [address] [place] [id number] Albert Mcclendon DO [address] [facility] [place] [address] documented as of this encounter Goals GoalPatient Goal TypeAssociated ProblemsRecent ProgressPatient-Stated?Author Reminders Care PlanOB RemindersNoOpen Scheduling, Backgrounddocumented as of this encounter Procedures Procedure NamePriorityDate/TimeAssociated DiagnosisCommentsPOCT URINALYSIS MNPNISVDBotezgp79/03/2025 2:02 PM EST Third trimester ([facility] documented in this encounter Results * (ABNORMAL) POCT urinalysis dipstick manually resulted (03/16/2025 2:02 PM EST) ComponentValueRef RangeTest MethodAnalysis TimePerformed AtPathologist SignatureColor, UAYellowClarity, UACloudyGlucose, UANegativeNegative - 2000(110) ++++ mg/dLBilirubin, UANegativeNegative - 4(70) +++ mg/dLKetones, UA PositiveNegative - 160(16) ++++ mg/dLSpec Grav, UA1.0201 - 1.03Blood, UA PositiveNegative - 50 Serafin/mcLpH, UA7.05 - 9Protein, UA1+Negative - 1999(20) ++++ mg/dLUrobilinogen, UA1.00.2 - 12 mg/dLLeukocytes, UA1+Negative - 500+++ Marcelino/mcLNitrite, UANegativeNegative - PositiveSpecimen (Source)Anatomical Location / LateralityCollection Method / VolumeCollection TimeReceived Time Urine03/16/2025 2:02 PM EST Narrative Authorizing ProviderResult TypeResult StatusCorey Danelle DOPOINT OF CARE TEST ENTER/EDIT ORDERABLESFinal Result documented in this encounter Visit Diagnoses Diagnosis Third trimester ([facility]) state, incidental 34 weeks gestation of ([facility]) documented in this encounter Additional Health Concerns Active ProblemsNoted DateDiagnosed DateOB Gnoilxonh36/20/2025 documented as of this encounter Care Teams Team MemberRelationshipSpecialtyStart DateEnd Date Rebeka Oconnor NP [facility] [place] [address] PCP - GeneralFamily Medicine09/23/24documented as of this encounter
--- OUTSIDE RECORDS SUMMARY | 2025-03-23 13:30 | XMS_ITS | Encounter Summary ---
Author Organization [facility] Address [address] [place] [place] [address] Care Team Providers Care Wholesale Agronomist Name Role Phone Rebeka Oconnor NP Primary Care Provider Reason for Visit * ReasonCommentsRoutine Visit Encounter Details DateTypeDepartmentCare Team (Latest Contact Info)Zkrnqxcndxj16/10/2025 1:30 PM ESTRoutine [facility] [address] [place] [address] Emilia Somers PA [address] [place], [facility]11 35 weeks gestation of ([facility]); Third trimester ([facility]) Social History Tobacco UseTypesPacks/DayYears UsedDateSmoking Tobacco: Never Assessed Estimated Date of ZpjynnizIrwapohmOhv05/12/2026ased on last menstrual period of 07/19/2024Sex and Gender InformationValueDate RecordedSex Assigned at BirthNot on fileLegal SbhXgfkvd36/11/2023 9:37 AM EDTGender IdentityNot on fileSexual OrientationNot on filedocumented as of this encounter Last Filed Vital Signs Vital SignReadingTime TakenCommentsBlood Lyvbmzag924/7003/23/2025 1:45 PM EST Pulse--Temperature--Respiratory Rate--Oxygen Saturation--Inhaled Oxygen Concentration--Ctaiwo29.9 kg (187 lb 1.9 oz)03/23/2025 1:45 PM ESTHeight--Body Mass Index--documented in this encounter Progress Notes * OSORIO Kellogg - 03/23/2025 1:30 PM EST Reason for Appointment: Patient [...] History HISTORY PAST MEDICAL HISTORY SOCIAL HISTORY History reviewed. No pertinent past medical history. Social History Tobacco Use Smoking status: Not [...] nursing note reviewed. Exam conducted with a real estate paralegal present. Vitals: There is no height or weight on file to calculate BMI. BP: 110/70 Patient's last menstrual period was 07/19/2024. Assessment/Plan ICD-10-CM 1. 35 weeks gestation of ([facility]) Z3A.35 POCT urinalysis dipstick manually resulted 2. Third trimester ([facility]) Z34.93 POCT urinalysis dipstick manually resulted Assessment/Plan Return OB: Patient presents today for a routine obstetrics appointment. Patient is currently 35w2d . Patient states she is doing well but has complaints of being tired due to current . Patient has verbalizes frequent movement. labor precautions was discussed/given and patient was instructed to perform kick counts three times a day. Orders Placed This Encounter Procedures POCT urinalysis dipstick manually resulted Follow Up: Patient is to return to office in 2 week for routine OB appointment. Documented by Elvi Gray LPN on behalf of: OSORIO Kellogg documented in this encounter Plan of Treatment DateTypeDepartmentCare Team (Latest Contact Info)Ofqkdqcnsch72/22/2025 1:00 PM ESTRoutine [facility] [address] [place] [phone] Albert Mcclendon DO [address] [place] [address] documented as of this encounter Goals GoalPatient Goal TypeAssociated ProblemsRecent ProgressPatient-Stated?Author Reminders Care PlanOB RemindersNoOpen Scheduling, Backgrounddocumented as of this encounter Procedures Procedure NamePriorityDate/TimeAssociated DiagnosisCommentsPOCT URINALYSIS JGHGMMUPVffchdp86/10/2025 1:45 PM EST 35 weeks gestation of ([facility]) Third trimester ([facility]) documented in this encounter Results * (ABNORMAL) POCT urinalysis dipstick manually resulted (03/23/2025 1:45 PM EST) ComponentValueRef RangeTest MethodAnalysis TimePerformed AtPathologist SignatureColor, UAYellowClarity, UAClearGlucose, UANegativeNegative - 2000(110) ++++ mg/dLBilirubin, UANegativeNegative - 4(70) +++ mg/dLKetones, UA NegativeNegative - 160(16) ++++ mg/dLSpec Grav, UA1.0101 - 1.03Blood, UA NegativeNegative - 50 Serafin/mcLpH, UA8.05 - 9Protein, UANegativeNegative - 2000(20) ++++ mg/dLUrobilinogen, UA1.00.2 - 12 mg/dLLeukocytes, UA3+Negative - 500+++ Marcelino/mcLNitrite, UANegativeNegative - PositiveSpecimen (Source) Anatomical Location / LateralityCollection Method / VolumeCollection Time Received OwxcCgdhg74/10/2025 1:45 PM EST Narrative Authorizing ProviderResult TypeResult StatusRetreat Doctors' Hospital TEST ENTER/EDIT ORDERABLESFinal Result documented in this encounter Visit Diagnoses Diagnosis 35 weeks gestation of ([facility]) Third trimester ([facility]) state, incidental documented in this encounter Additional Health Concerns Active ProblemsNoted DateDiagnosed DateOB Jtireopwt26/20/2025 documented as of this encounter Care Teams Team MemberRelationshipSpecialtyStart DateEnd Date Rebeka Oconnor NP [address] [place] [address] PCP - GeneralFamily Medicine09/23/24documented as of this encounter
--- OUTSIDE RECORDS SUMMARY | 2025-03-28 10:50 | XMS_ITS | Encounter Summary ---
Author Organization [facility] Address [address] [place] [place] [address] Care Team Providers Care Hose Coupling Joiner Name Role Phone Rebeka Oconnor NP Primary Care Provider Reason for Visit * ReasonCommentsRoutine Visit Encounter Details DateTypeDepartmentCare Team (Latest Contact Info)Ffgagafrtlf36/15/2025 10:50 AM ESTRoutine [facility] [address] [place] [address] Emilia Somers PA [address] [place], [place] [id number] Third trimester ([facility]); 36 weeks gestation of ([facility]); Upper respiratory tract infection, unspecified type Social History Tobacco UseTypesPacks/DayYears UsedDateSmoking Tobacco: Never Assessed Estimated Date of DvbqergnAdspocduIrm81/12/2026Based on last menstrual period of 07/19/2024Sex and Gender InformationValueDate RecordedSex Assigned at BirthNot on fileLegal PgrZofgrd95/11/2023 9:37 AM EDTGender IdentityNot on fileSexual OrientationNot on filedocumented as of this encounter Last Filed Vital Signs Vital SignReadingTime TakenCommentsBlood Vrqqxrkw820/8403/28/2025 11:30 AM EST Pulse--Temperature--Respiratory Rate--Oxygen Saturation--Inhaled Oxygen Concentration--Pfqnmk82.7 kg (189 lb)03/28/2025 11:30 AM ESTHeight--Body Mass Index--documented in this encounter Progress Notes * OSORIO Kellogg - 03/28/2025 10:50 AM EST Reason for Appointment: Patient ID: Christel Muller is a 25 y.o. female who presents for Routine Visit Patient presents today for Return OB appointment. MEDICATIONS Current Outpatient Medications Medication Instructions azithromycin (Zithromax Z-Yuan) 250 MG tablet As directed MV-Min-Fe Fum-FA-DHA ( 1 PO) 1 tablet, [...] Exam Constitutional: Appearance: Normal appearance. She is well-developed and normal weight. Genitourinary: Vulva normal. HENT: Head: Normocephalic. Cardiovascular: Rate and Rhythm: Normal rate and regular rhythm. Pulses: Normal pulses. Pulmonary: Effort: Pulmonary effort is normal. Breath sounds: Normal breath sounds. Abdominal: General: Bowel sounds are normal. There is no distension. Palpations: Abdomen is soft. Tenderness: There is no abdominal tenderness. There is no guarding or rebound. Musculoskeletal: General: No swelling. Normal range of motion. Right lower leg: No edema. Left lower leg: No edema. Neurological: General: No focal deficit present. Mental Status: She is alert and oriented to person, place, and time. Skin: General: Skin is warm and dry. Psychiatric: Mood and Affect: Mood normal. Behavior: Behavior normal. Thought Content: Thought content normal. Judgment: Judgment normal. Vitals and nursing note reviewed. Exam conducted with a resource analyst present. Vitals: There is no height or weight on file to calculate BMI. BP: 132/84 Patient's last menstrual period was 07/19/2024. Assessment/Plan ICD-10-CM 1. Third trimester ([facility]) Z34.93 POCT urinalysis dipstick manually resulted CULTURE, GROUP B STREP WITH SUSCEPTIBLITY CULTURE, GROUP B STREP WITH SUSCEPTIBLITY 2. 36 weeks gestation of ([facility]) Z3A.36 3. Upper respiratory tract infection, unspecified type J06.9 azithromycin (Zithromax Z-Yuan) 250 MG tablet Assessment/Plan Patient is doing well but has complaints of being tired and having maternal discomfort due to . Patient verbalized frequent movement and was instructed to perform kick counts three times per day. labor precautions were given, LARC consent was signed/declined, and GBS was obtained. Cervical check was performed and patient is 0cm dilated. Orders Placed This Encounter Procedures CULTURE, GROUP B STREP WITH SUSCEPTIBLITY POCT urinalysis dipstick manually resulted Follow Up: Patient is to return to office in 1 week for routine OB appointment Documented by Latanya Cooley MA on behalf of: OSORIO Kellogg documented in this encounter Plan of Treatment DateTypeDepartmentCare Team (Latest Contact Info)Crfhjhlovyw12/22/2025 1:00 PM ESTRoutine [facility] [address] [phone] Albert Mcclendon, [address] [place] [address] NameTypePriorityAssociated DiagnosesOrder ScheduleCULTURE, GROUP B STREP WITH SUSCEPTIBLITYLabRoutine Third trimester ([facility]) Expected: 03/28/2025, Expires: 03/28/2026documented as of this encounter Goals GoalPatient Goal TypeAssociated ProblemsRecent ProgressPatient-Stated?Author Reminders Care PlanOB RemindersNoOpen Scheduling, Backgrounddocumented as of this encounter Procedures Procedure NamePriorityDate/TimeAssociated DiagnosisCommentsPOCT URINALYSIS SYDEWGCDGewcusr83/15/2025 11:34 AM EST Third trimester ([facility]) documented in this encounter Results * (ABNORMAL) POCT urinalysis dipstick manually resulted (03/28/2025 11:34 AM EST)ComponentValueRef RangeTest MethodAnalysis TimePerformed AtPathologist SignatureColor, UAYellowClarity, UAClearGlucose, UANegativeNegative - 2000(110) ++++ mg/dLBilirubin, UANegativeNegative - 4(70) +++ mg/dLKetones, UA NegativeNegative - 160(16) ++++ mg/dLSpec Grav, UA1.0251 - 1.03Blood, UA PositiveNegative - 50 Serafin/mcLComment:TracepH, UA6.05 - 9Protein, UATrace Negative - 2000(20) ++++ mg/dLUrobilinogen, UA0.20.2 - 12 mg/dLLeukocytes, UA 3+Negative - 500+++ Marcelino/mcLNitrite, UANegativeNegative - PositiveSpecimen (Source)Anatomical Location / LateralityCollection Method / VolumeCollection TimeReceived DsuiKcneh88/15/2025 11:34 AM EST Narrative Authorizing ProviderResult TypeResult StatusAmy [facility] TEST ENTER/EDIT ORDERABLESFinal Result documented in this encounter Visit Diagnoses Diagnosis Third trimester ([facility]) state, incidental 36 weeks gestation of ([facility]) Upper respiratory tract infection, unspecified type documented in this encounter Additional Health Concerns Active ProblemsNoted DateDiagnosed DateOB Euwunbmix07/20/2025 documented as of this encounter Care Teams Team MemberRelationshipSpecialtyStart DateEnd Date Rebeka Oconnor NP [facility] [facility] [place] [address] PCP - GeneralFamily Medicine09/23/24documented as of this encounter
--- OUTSIDE RECORDS SUMMARY | 2025-03-28 20:19 | XMS_ITS | Encounter Summary ---
Author Organization [facility] Address [address] [place] [address] Care Team Providers Care Delinquent Tax Collector Assistant Name Role Phone Rebeka Oconnor NP Primary Care Provider Encounter Details DateTypeDepartmentCare Team (Latest Contact Info)Etayfoujuya87/15/2025amboo flowsheet [facility] [address] [place] [address] Emilia Somers PA [address] [place], [facility]11 Social History Tobacco UseTypesPacks/DayYears UsedDateSmoking Tobacco: Never Assessed Estimated Date of AcmwkerqErwwtferLqw09/12/2026ased on last menstrual period of 07/19/2024Sex and Gender InformationValueDate RecordedSex Assigned at BirthNot on fileLegal WxaEweegz79/11/2023 9:37 AM EDTGender IdentityNot on fileSexual OrientationNot on filedocumented as of this encounter Plan of Treatment DateTypeDepartmentCare Team (Latest Contact Info)Thdgkygffkp82/22/2025 1:00 PM ESTRoutine [facility] [address] [place] [address] Albert Mcclendon DO [address] [place], [facility]11 documented as of this encounter Goals GoalPatient Goal TypeAssociated ProblemsRecent ProgressPatient-Stated?Author Reminders Care PlanOB RemindersNoOpen Scheduling, Backgrounddocumented as of this encounter Visit Diagnoses Not on filedocumented in this encounter Additional Health Concerns Active ProblemsNoted DateDiagnosed DateOB Pximbpwbo77/20/2025 documented as of this encounter Care Teams Team MemberRelationshipSpecialtyStart DateEnd Date Rebeka Oconnor NP [address] [place] [address] PCP - GeneralFamily Medicine09/23/24documented as of this encounter
--- OUTSIDE RECORDS SUMMARY | 2025-03-28 20:19 | XMS_ITS ---
Author Organization [facility] Source Produ ction (ClinicalSummary Clone) Address Unknown Care Team Providers Care Licensed Mass Real Estate Appraiser Name Role Phone Unavailable Primary Care Physician Unavailab le Results * [UNITY] ANEUPLOIDY NIPT Performed by: [employer] Component Value Range Date Fraction 6.6% 10/08/2024 03:21 am UTCRh(D) NIPTRhD XOBRZTJU67/27/2025 03:21 am UTCSex Chromosome AneuploidyNOT CSQXQJOS10/27/2025 03:21 am UTCMonosomy XLOW RISK <1 in , 03:21 am UTCTrisomy 13LOW RISK <1 in , 03:21 am UTCTrisomy 18LOW RISK <1 in , 03:21 am UTCTrisomy 21LOW RISK <1 in , 03:21 am UTCFetal SexNOT SGJLXEL1910/08/2024 03:21 am UTC RbgjuzwxxFFGEPAHZK38/27/2025 03:21 am UTCFor detailed report, see PDF See PDF10/08/2024 03:21 am UTC10/08/2024 03:21 am UTC Social History Observation Value Start Date End Date
--- OUTSIDE RECORDS SUMMARY | 2025-03-28 20:19 | XMS_ITS | Encounter Summary ---
Author Organization [facility] Address [address] [place] [address] Care Team Providers Care Buffet Server Name Role Phone Rebeka Oconnor NP Primary Care Provider Encounter Details DateTypeDepartmentCare Team (Latest Contact Info)Apvawdujxcg38/03/2025amboo flowsheet [facility] [address] [place] [address] Albert Mcclendon DO [address] [place], [facility]11 Social History Tobacco UseTypesPacks/DayYears UsedDateSmoking Tobacco: Never Assessed Estimated Date of TkfsfcbtVvmpfzjyYfn71/12/2026Based on last menstrual period of 07/19/2024Sex and Gender InformationValueDate RecordedSex Assigned at BirthNot on fileLegal ThoWydmpm15/11/2023 9:37 AM EDTGender IdentityNot on fileSexual OrientationNot on filedocumented as of this encounter Plan of Treatment DateTypeDepartmentCare Team (Latest Contact Info)Jetvmclbiep35/22/2025 1:00 PM ESTRoutine [facility] [address] [facility] [place] [address] Albert Mcclendon DO [address] [place], [facility]11 documented as of this encounter Goals GoalPatient Goal TypeAssociated ProblemsRecent ProgressPatient-Stated?Author Reminders Care PlanOB RemindersNoOpen Scheduling, Backgrounddocumented as of this encounter Visit Diagnoses Not on filedocumented in this encounter Additional Health Concerns Active ProblemsNoted DateDiagnosed DateOB Jfyxwbncx64/20/2025 documented as of this encounter Care Teams Team MemberRelationshipSpecialtyStart DateEnd Date Rebeka Oconnor NP [facility] [place] [address] PCP - GeneralFamily Medicine09/23/24documented as of this encounter
--- OUTSIDE RECORDS SUMMARY | 2025-03-28 20:19 | XMS_ITS | Clinical Summary ---
Author Organization [facility] Address [address] [place] [address] Care Team Providers Care Pharmacy Consultant Name Role Phone Rebeka Oconnor NP Primary Care Provider Allergies No known active allergies Medications MedicationSigDispense QuantityRefillsLast FilledStart DateEnd DateStatus MV-Min-Fe Fum-FA-DHA ( 1 PO) Take 1 tablet by mouth DailyActive azithromycin (Zithromax Z-Yuan) 250 MG tablet Indications:Upper respiratory tract infection, unspecified typeAs directed 6 tablet 5Active Encounters DateTypeDepartmentCare LaryPnfisacpsxb61/15/2025 10:50 AM ESTRoutine CLAR[facility] V[facility] [address] [place] [address] [place] [address] Emilia Somers PA Third trimester ([facility]); 36 weeks gestation of ([facility]); Upper respiratory tract infection, unspecified type03/28/2025amboo flowsheet [facility] [address] [place] [address] [place] [address] Emilia Somers PA 03/23/2025 1:30 [place] [address] Emilia Somers PA 35 weeks gestation of ([facility]); Third trimester ([facility])03/23/2025amboo flowsheet NOMNatanael VICK [address] [place], [place] [address] [address] Emilia Somers PA 03/16/2025 1:30 PM ESTRoutine [facility] [address] [place] [address] Albert Mcclendon DO Third trimester ([facility]); 34 weeks gestation of ([facility])03/16/2025amboo flowsheet [facility] [address] [place] [address] Albert Mcclendon, 03/16/20253351Bdtkdi90/20/2025 11:20 AM ESTRoutine [facility] [address] [place] [address] Emilia Somers PA 32 weeks gestation of ([facility]); Third trimester ([facility])03/03/2025amboo flowsheet [facility] [address] [place] [address] Emilia Somers PA 02/18/2025Telephone [facility] [address] [place] [address] Albert Mcclendon, 02/17/2025 11:40 AM ESTRoutine [facility] [address] [facility] [facility] [place] [address] Albert Mcclendon DO Third trimester ([facility]); 30 weeks gestation of ([facility])02/17/2025 11:00 AM ESTAncillary Procedure [facility] [address] [place] [address] Size of fetus inconsistent with dates in second trimester ([facility])02/04/2025 Abstract [facility] [address] [facility] [place] [address] Albert Mcclendon DO 02/02/2025 8:30 AM EDTRoutine [facility] [address] [facility] [facility] [place] [address] Emilia Somers PA Size of fetus inconsistent with dates in second trimester ([facility]) (Primary Dx); Diabetes mellitus screening; Third trimester ([facility]); 28 weeks gestation of ([facility])02/02/2025amboo flowsheet [facility] [address] Emilia Somers PA 02/02/20258390Itztay59/24/2025 9:00 AM EDTAncillary Procedure [facility] [place] [address] Screening, , for anatomic survey ([facility])01/03/2025 3:50 PM EDT Routine [facility] [address] Albert Mcclendon DO Screening, , for anatomic survey ([facility]) (Primary Dx); Second trimester ([facility]); 24 weeks gestation of ([facility])01/03/2025[facility] CLARKE Christianson [facility] [place] [address] Albert Mcclendon DO 01/03/2025Travelfrom Last 3 Months Social History Tobacco UseTypesPacks/DayYears UsedDateSmoking Tobacco: Never Assessed Estimated Date of PeibllxhRsrxuloqKmh56/12/2026ased on last menstrual period of 07/19/2024Sex and Gender InformationValueDate RecordedSex Assigned at BirthNot on fileLegal DkaSdfcqn29/11/2023 9:37 AM EDTGender IdentityNot on fileSexual OrientationNot on file Last Filed Vital Signs Vital SignReadingTime TakenCommentsBlood Lmwlrclj430/8403/28/2025 11:30 AM EST Pulse--Temperature--Respiratory Rate--Oxygen Saturation--Inhaled Oxygen Concentration--Pinqxy53.7 kg (189 lb)03/28/2025 11:30 AM ESTHeight--Body Mass Index-- Plan of Treatment DateTypeDepartmentCare Team (Latest Contact Info)Qfsxcujbgbe78/22/2025 1:00 PM ESTRoutine [facility] [address] [facility] [facility] [place] [phone] Albert Mcclendon, DO [address] [place] [address] Goals GoalPatient Goal TypeAssociated ProblemsRecent ProgressPatient-Stated?Author Reminders Care PlanOB RemindersNoOpen Scheduling, Background Procedures Procedure NamePriorityDate/TimeAssociated DiagnosisCommentsPOCT URINALYSIS CNSYPIBDDnlhuqj32/15/2025 11:34 AM EST Third trimester ([facility]) POCT URINALYSIS TTUTOVYALnkrndy20/10/2025 1:45 PM EST 35 weeks gestation of ([facility]) Third trimester ([facility]) POCT URINALYSIS HRSZEKGSHcajgxd57/03/2025 2:02 PM EST Third trimester ([facility]) POCT URINALYSIS TUDCSEKMWwlufok38/20/2025 11:51 AM EST 32 weeks gestation of ([facility]) Third trimester ([facility]) GLUCOSE TOLERANCE, 1 NLZLQwpnyel67/06/2025 3:20 PM EST Diabetes mellitus screening ANFVmxhoxv28/06/2025 3:20 PM EST Diabetes mellitus screening POCT URINALYSIS HAXCRIGPGisgezp75/06/2025 11:51 AM EST Third trimester ([facility]) US OB FOLLOW UP TRANSABDOMINAL EAVWCNJLFjytrkd22/06/2025 11:30 AM EST Size of fetus inconsistent with dates in second trimester ([facility]) POCT URINALYSIS TVPTFZRKOvcrxmb27/22/2025 8:50 AM EDT Third trimester ([facility]) US OB LIMITED 1+ LUDDCMPEvqogxx72/24/2025 9:28 AM EDT Screening, , for anatomic survey ([facility]) POCT URINALYSIS AGIMLUFBJhgrigl20/22/2025 4:41 PM EDT Second trimester ([facility]) from Last 3 Months Results * (ABNORMAL) POCT urinalysis dipstick manually resulted (03/28/2025 11:34 AM EST) Only the most recent of7 resultswithin the time period is included. ComponentValueRef RangeTest MethodAnalysis TimePerformed AtPathologist Signature Color, UAYellowClarity, UAClearGlucose, UANegativeNegative - 2000(110) ++++ mg/dLBilirubin, UANegativeNegative - 4(70) +++ mg/dLKetones, UANegativeNegative - 160(16) ++++ mg/dLSpec Grav, UA1.0251 - 1.03Blood, UAPositiveNegative - 50 Serafin/mcLComment:TracepH, UA6.05 - 9Protein, UATraceNegative - 2000(20) ++++ mg/dL Urobilinogen, UA0.20.2 - 12 mg/dLLeukocytes, UA3+Negative - 500+++ Marcelino/mcL Nitrite, UANegativeNegative - PositiveSpecimen (Source)Anatomical Location / LateralityCollection Method / VolumeCollection TimeReceived EsyeQgsuc20/15/2025 11:34 AM EST Narrative Authorizing ProviderResult TypeResult StatusAmy Yonis [facility] TEST ENTER/EDIT ORDERABLESFinal Result * Glucose tolerance, 1 hour (02/17/2025 3:20 PM EST)Specimen (Source)Anatomical Location / LateralityCollection Method / VolumeCollection TimeReceived Time BloodVenous blood specimen / Unknown Narrative Authorizing ProviderResult TypeResult StatusAmy Yonis PALAB BLOOD ORDERABLES Final ResultPerforming OrganizationAddressCity/State/ZIP CodePhone Number EXTERNAL LAB * CBC (02/17/2025 3:20 PM EST)Specimen (Source)Anatomical Location / Laterality Collection Method / VolumeCollection TimeReceived TimeBloodVenous blood specimen / Unknown Narrative Authorizing ProviderResult TypeResult StatusAmy Yonis ALVAR[place]O BLOOD ORDERABLES Final ResultPerforming OrganizationAddressCity/State/ZIP CodePhone Number EXTERNAL LAB * US OB follow up transabdominal approach (02/17/2025 11:30 AM EST)Anatomical RegionLateralityModalityBodyUltrasoundSpecimen (Source)Anatomical Location / LateralityCollection Method / VolumeCollection TimeReceived Time02/17/2025 1:50 PM EST Impressions 02/17/2025 2:04 PM EST Single, live intrauterine , current sonographic age of 31 weeks and 0 days, with an estimated date of delivery of April 21, 2025 (prior OLESYA April 26, 2025) * ??Estimated Weight (g) by Percentile is based upon an accurate estimated age based onlast menstrual period. ?? TRANSCRIBED BY: ? ELECTRONICALLY SIGNED BY: Blas Salomon MD Narrative 02/17/2025 2:04 PM EST FINDINGS: Comparison December 08, 2024 A single, live intrauterine is present with normal cardiac rate of 130 beats per minute. Normal activity and amniotic fluid volume. Amniotic fluid index is 15 cm. ??Morphology is grossly normal. The current sonographic age is 31 weeks and 0 days, based on the following measurements: ?BPD ? 7.8 cm (31 weeks, 2 days) ?Head Circumference ?28.6 cm (31 weeks, 3 days) ?Abdominal Circumference ?27.5 cm (31 weeks, 4 days) ?Femur Length ?5.7 cm (29 weeks, 6 days) ?Presentation ? Cephalic ? Weight (g) by Percentile ?? 58.0 % * (prior 60.5%) These measurements result in an estimated date of delivery of April 21, 2025. ?? The current estimated weight is 1682 grams (3 pounds, 11 ounces). ?? Procedure Note Blas Salomon MD - 02/17/2025 FINDINGS: Comparison December 08, 2024 A single, live intrauterine is present with normal cardiacrate of 130 beats per minute. Normal activity and amniotic fluidvolume. Amniotic fluid index is 15 cm. Morphology is grossly normal. Thecurrent sonographic age is 31 weeks and 0 days, based on the followingmeasurements: BPD 7.8 cm (31 weeks, 2 days) Head Circumference 28.6 cm (31 weeks, 3 days) Abdominal Circumference 27.5 cm (31 weeks, 4 days) Femur Length 5.7 cm (29 weeks, 6 days) Presentation Cephalic Weight (g) by Percentile 58.0 % * (prior 60.5%) These measurements result in an estimated date of delivery of April. The current estimated weight is 1682 grams (3 pounds, 11ounces). IMPRESSION: Single, live intrauterine , current sonographic age of 31 weeksand 0 days, with an estimated date of delivery of April 21, 2025 (priorEDD April 26, 2025) * Estimated Weight (g) by Percentile is based upon an accurateestimated age based on last menstrual period. TRANSCRIBED BY: ELECTRONICALLY SIGNED BY: Blas Salomon MD Authorizing ProviderResult TypeResult StatusAmy [facility] PROCEDURES Final Result * US OB limited 1+ fetuses [...] BY: Blas Salomon MD Authorizing ProviderResult TypeResult StatusKrgiacomo Juliette NPIMG OB US PROCEDURESFinal Result from Last 3 Months Additional Health Concerns Active ProblemsNoted DateDiagnosed DateOB Mtpwhpjdm42/20/2025 Insurance * Guarantor: Christel MullerAccount TypeRelation to PatientDate of BirthPhone Billing AddressPersonal/ChrohaKsmg[address] [facility] [place] [address] Care Teams Team MemberRelationshipSpecialtyStart DateEnd Date Rebeka Oconnor NP [address] [place] [address] [place] [address] PCP - GeneralFavaly Medicine09/23/24
--- OUTSIDE RECORDS SUMMARY | 2025-03-28 20:19 | XMS_ITS ---
Author Organization [facility] Source Produ ction (ClinicalSummary Clone) Address Unknown Care Team Providers Care Meat Grader Name Role Phone Unavailable Primary Care Physician Unavailab le Results * [UNITY] CARRIER SCREEN Performed by: [employer] Value Range Date Sickle Cell Disease/Beta-Thalassemia/Hemoglobino pathies carrier screen NEGATIVE 10/09/2024 07:53 am UTCAlpha-Thalassemia carrier aymoymCAMJUZQS18/28/2025 07:53 am UTCCystic Fibrosis carrier hzivpvWHFFTIEX56/28/2025 07:53 am UTCSpinal Muscular Atrophy carrier screenNEGATIVE 2 SMN1 copies, SNP not kzoxypi3710/09/2024 07:53 am UTCFor detailed report, see PDFSee PDF10/09/2024 07:53 am UTC 10/09/2024 07:53 am UTC Social History Observation Value Start Date End Date
--- OUTSIDE RECORDS SUMMARY | 2025-03-28 20:19 | XMS_ITS | Encounter Summary ---
Author Organization [facility] Address [address] [place] [address] Care Team Providers Care Security Chief Museum Name Role Phone Rebeka Oconnor NP Primary Care Provider Encounter Details DateTypeDepartmentCare Team (Latest Contact Info)Fyjnskoeldj89/10/2025amboo flowsheet NOMN[facility]anael [facility] [address] [address] Emilia Somers PA [address] [place], [facility] Social History Tobacco UseTypesPacks/DayYears UsedDateSmoking Tobacco: Never Assessed Estimated Date of PqlajghqBasaorzyCzn45/12/2026ased on last menstrual period of 07/19/2024Sex and Gender InformationValueDate RecordedSex Assigned at BirthNot on fileLegal XiwGeolzo90/11/2023 9:37 AM EDTGender IdentityNot on fileSexual OrientationNot on filedocumented as of this encounter Plan of Treatment DateTypeDepartmentCare Team (Latest Contact Info)Sfhqzpwofch92/22/2025 1:00 PM ESTRoutine [facility] [address] [address] Albert Mcclendon DO [address] [place], [facility]11 documented as of this encounter Goals GoalPatient Goal TypeAssociated ProblemsRecent ProgressPatient-Stated?Author Reminders Care PlanOB RemindersNoOpen Scheduling, Backgrounddocumented as of this encounter Visit Diagnoses Not on filedocumented in this encounter Additional Health Concerns Active ProblemsNoted DateDiagnosed DateOB Agvpzdqbg93/20/2025 documented as of this encounter Care Teams Team MemberRelationshipSpecialtyStart DateEnd Date Rebeka Oconnor NP [address] [place] [address] PCP - GeneralFamily Medicine09/23/24documented as of this encounter
--- OUTSIDE RECORDS SUMMARY | 2025-03-28 20:19 | XMS_ITS | Encounter Summary ---
Author Organization [facility] Address [address] [place] [address] Care Team Providers Care Licensed Club Manager Name Role Phone Rebeka Oconnor EDGER MACHINE OPERATOR Primary Care Provider Encounter Details DateTypeDepartmentCare Team (Latest Contact Info)Ehnwyyapayt87/03/2025Travel Social History Tobacco UseTypesPacks/DayYears UsedDateSmoking Tobacco: Never Assessed Estimated Date of ThtmgcrvEfaldnygEdw31/12/2026Based on last menstrual period of 07/19/2024Sex and Gender InformationValueDate RecordedSex Assigned at BirthNot on fileLegal EsiKlfwxr54/11/2023 9:37 AM EDTGender IdentityNot on fileSexual OrientationNot on filedocumented as of this encounter Plan of Treatment DateTypeDepartmentCare Team (Latest Contact Info)Iqymmnwltav33/22/2025 1:00 PM ESTRoutine [facility] [address] [place] [address] Albert Mcclendon DO [address] [place], [facility] documented as of this encounter Goals GoalPatient Goal TypeAssociated ProblemsRecent ProgressPatient-Stated?Author Reminders Care PlanOB RemindersNoOpen Scheduling, Backgrounddocumented as of this encounter Visit Diagnoses Not on filedocumented in this encounter Additional Health Concerns Active ProblemsNoted DateDiagnosed DateOB Xhtjlwktv20/20/2025 documented as of this encounter Care Teams Team MemberRelationshipSpecialtyStart DateEnd Date Rebeka Oconnor NP [facility] [place] [address] PCP - GeneralFamily Medicine09/23/24documented as of this encounter
== END 2025-03-28 20:17 | disposition home or self-care (01) ==
LOC: LAB 20:16
PROVIDERS: PCP Nurse Practitioner Family; Visit Provider Physician Assistant
DX: Z34.93 Encounter for supervision of normal pregnancy, unspecified, third trimester (principal); Z3A.36 36 weeks gestation of pregnancy
CPT/HCPCS: 87081